=== PATIENT | male | born 1965 | race Caucasian/White ===

== ENCOUNTER 2018-10-16 20:38 | Inpatient (IN) | payer OTHER ==
--- NOTE | 2018-10-16 21:46 | ED ---
Chest Pain HPI - General Chief Complaint: Chest Pain Stated Complaint: Chest pain Source: patient Mode of arrival: wheelchair Limitations: no limitations - History of Present Illness Initial Comments: 's patient is a 53-year-old man who presents to be evaluated for left sided chest pain. He states that it began around 9 this morning, while he was watching television. He describes as somewhat dull, and states that it is a little bit intermittent. He has not noted worsening or relieving factors. He states it does not seem to be exertional, he was able to walk home from a grocery store this morning and it did not seem to make the pain worse. The patient states that it does seem to radiate towards his neck. He has not had any anginal symptoms associated. MD Complaint: chest pain Onset/Timin -: hour(s) Onset: during rest Pain Location: left chest Pain Radiation: neck Severity: moderate Quality: tightness, dull Consistency: intermittent Improves With: nothing Worsens With: nothing Treatments Prior to Arrival: none - Related Data Previous Rx's Medication Instructions Recorded Aspirin 325 mg PO DAILY #30 tab 10/22/18 Atorvastatin [Lipitor] 80 mg PO HS #30 tab 10/22/18 Clopidogrel [Plavix] 75 mg PO DAILY #30 tab 10/22/18 Famotidine [Pepcid] 20 mg PO HS PRN #30 tab 10/22/18 Lisinopril [Zestril] 2.5 mg PO DAILY #30 tab 10/22/18 Metoprolol Tartrate [Lopressor] 25 mg PO BID #60 tab 10/22/18 Nitroglycerin Sl Tabs [Nitrostat] 0.4 mg SUBLINGUAL Q5M PRN #30 tab 10/22/18 Allergies Allergy/AdvReac Type Severity Reaction Status Date / Time codeine AdvReac Nausea & Verified 10/16/18 21:16 Vomiting/ITCH Review of Systems ROS Statement: Those systems with pertinent positive or pertinent negative responses have been documented in the HPI. ROS Other: All systems not noted in ROS Statement are negative. Constitutional: Denies: fever, chills Respiratory: Denies: cough, dyspnea, hemoptysis Cardiovascular: Reports: chest pain. Denies: palpitations, dyspnea on exertion , orthopnea, syncope Gastrointestinal: Denies: abdominal pain, nausea, vomiting Genitourinary: Denies: dysuria Musculoskeletal: Denies: back pain Skin: Denies: rash Neurological: Denies: headache, weakness, numbness EKG Findings - EKG Results: EKG: interpreted by RONAL, sinus rhythm (Rate 72 bpm), normal axis, normal QRS - Blocks, [place], Hypertrophy, ST Abn: Repolarization changes or abnormalities: nonspecific abnormality, ST segment, and/or T wave Past Medical History Additional Past Medical History / Comment(s): right shoulder pain, back pain History of Any Multi-Drug Resistant Organisms: None Reported Past Surgical History: Orthopedic Surgery Additional Past Surgical History / Comment(s): left leg, left knee Past Psychological History: Depression Smoking Status: Current every day smoker Past Alcohol Use History: Occasional Past Drug Use History: Cocaine, Heroin - Past Family History Father Family Medical History: Coronary Artery Disease (CAD), Respiratory Disorder Additional Family Medical History / Comment(s): Father at the age of 75 yrs. Mother Family Medical History: No Reported History Additional Family Medical History / Comment(s): Mother is healthy General Exam Limitations: no limitations General appearance: alert, in no apparent distress Head exam: Present: atraumatic, normocephalic Eye exam: Present: normal appearance. Absent: scleral icterus, conjunctival injection ENT exam: Present: normal oropharynx Neck exam: Present: normal inspection, full ROM. Absent: tenderness, meningismus, lymphadenopathy, thyromegaly Respiratory exam: Present: normal lung sounds bilaterally. Absent: respiratory distress, wheezes, rales, rhonchi, stridor, chest wall tenderness, accessory muscle use, decreased breath sounds, prolonged expiratory Cardiovascular Exam: Present: regular rate, normal rhythm, normal heart sounds. Absent: systolic murmur, diastolic murmur, rubs, gallop GI/Abdominal exam: Present: soft. Absent: distended, tenderness, guarding, rebound, rigid, mass Extremities exam: Present: normal inspection, normal capillary refill. Absent: pedal edema, calf tenderness Back exam: Present: normal inspection. Absent: CVA tenderness (R), CVA tenderness (L) Neurological exam: Present: alert Skin exam: Present: warm, dry, intact, normal color. Absent: rash Course Vital Signs 10/16/18 10/16/18 10/16/18 20:42 21:07 22:00 Temperature 98.4 F Pulse Rate 64 76 71 Respiratory 18 20 18 Rate Blood Pressure 161/95 158/108 O2 Sat by Pulse 99 100 97 Oximetry 10/16/18 10/16/18 10/17/18 22:30 23:30 00:00 Temperature Pulse Rate 85 86 75 Respiratory 22 18 18 Rate Blood Pressure 176/119 163/110 172/119 O2 Sat by Pulse 95 96 97 Oximetry 10/17/18 10/17/18 10/17/18 00:30 01:00 01:30 Temperature Pulse Rate 59 L 68 80 Respiratory 20 18 30 H Rate Blood Pressure 169/117 166/121 172/124 O2 Sat by Pulse 98 96 96 Oximetry 10/17/18 10/17/18 10/17/18 02:00 02:40 02:45 Temperature Pulse Rate 79 45 L Respiratory 20 Rate Blood Pressure 153/116 163/117 O2 Sat by Pulse 100 Oximetry 10/17/18 10/17/18 10/17/18 03:13 04:00 04:18 Temperature 97.9 F 97.6 F Pulse Rate 56 L 68 59 L Respiratory 18 15 18 Rate Blood Pressure 140/94 143/95 122/72 O2 Sat by Pulse 100 98 98 Oximetry Chest Pain MDM - MDM Patient's 53-year-old man with left-sided chest pain, with acute coronary syndrome. His initial troponin 0.59. Patient given initially morphine, followed by Dilaudid, also aspirin, nitrates, heparin drip, then followed by nitro drip. Case discussed with cardiology on-call, and then following the patient's repeat troponin called and discussed again and they will take the patient for mason tender restoration labor. Critical Care Time Critical Care Time: Yes (35 minutes) Disposition Clinical Impression: Acute coronary syndrome Disposition: ADMITTED IP TO THIS HOSP Condition: Serious Is patient prescribed a controlled substance at d/c from ED?: No
--- NOTE | 2018-10-16 21:58 | XR ---
EXAMINATION TYPE: XR chest 2V DATE OF EXAM: 10/16/2018 COMPARISON: 07/25/2009 HISTORY: Chest pain TECHNIQUE: Frontal and lateral views of the chest are obtained. FINDINGS: Heart and mediastinum are normal. Lungs are clear. Diaphragm is normal. Bony thorax appear s normal. There are chest leads. IMPRESSION: Normal chest. No change.
[2018-10-16 22:15] LABS: Anisocytosis Slight; Basophils # (A) 0.1 k/uL (0-0.2); Basophils % (A) 1 %; Eosinophils # (A) 0.4 k/uL (0-0.7); Eosinophils % (A) 4 %; HGB 13.4 gm/dL (13.0-17.5); Lymphocytes # (A) 3.9 k/uL (1.0-4.8); Lymphocytes % (A) 38 %; MCH 26.5 pg (25.0-35.0); MCHC 30.5 g/dL (31.0-37.0); MCV 86.8 fL (80.0-100.0); Mean Platelet Volume 7.6; Monocytes # (A) 0.6 k/uL (0-1.0); Monocytes % (A) 6 %; Neutrophils % (A) 49 %; Platelet Count 309 k/uL (150-450); RBC 5.07 m/uL (4.30-5.90); RDW 16.7 % (11.5-15.5); WBC 10.1 k/uL (3.8-10.6)
[2018-10-16 22:20] LABS: ALT 243 U/L (21-72); AST 103 U/L (17-59); Albumin 4.6 g/dL (3.5-5.0); Alkaline Phosphatase 127 U/L (38-126); Anion Gap 12 mmol/L; Blood Urea Nitrogen 16 mg/dL (9-20); Calcium 9.5 mg/dL (8.4-10.2); Carbon Dioxide 28 mmol/L (22-30); Chloride 100 mmol/L (98-107); Glucose 115 mg/dL (74-99); Magnesium 1.6 mg/dL (1.6-2.3); Sodium 140 mmol/L (137-145); Total Bilirubin 0.7 mg/dL (0.2-1.3); Total Protein 9.3 g/dL (6.3-8.2)
[2018-10-16 22:39] LABS: Creatine Kinase MB 6.4 ng/mL (0.0-2.4)
[2018-10-16 22:51] LABS: INR 1.1 (<1.2); Partial Thromboplastin Time 26.7 sec (22.0-30.0); Prothrombin Time 11.6 sec (9.0-12.0)
[2018-10-16 22:54] LABS: Potassium 5.1 mmol/L (3.5-5.1); Troponin I 0.59 ng/mL (0.000-0.034)
[2018-10-16 22:55] LABS: D-Dimer <0.17 mg/L FEU (<0.60)
[2018-10-16] MEDS ORDERED: MORPHINE SULFATE 4 MG/ML SYRINGE IV STA (23:47)
[2018-10-16] MEDS ORDERED: NITROGLYCERIN OINT 1 INCH/GM PACKET TOPICAL STA (23:48)
[2018-10-16] MEDS ORDERED: HEPARIN SODIUM,PORCINE 5,000 UNIT/ML 1 ML VIAL IV ONE (23:48)
[2018-10-16] MEDS ORDERED: HEPARIN SODIUM,PORCINE 5,000 UNIT/ML 1 ML VIAL IV PRN (23:48)
[2018-10-17] MEDS ORDERED: ONDANSETRON 4 MG/2 ML VIAL IVP STA (00:40)
[2018-10-17] MEDS: HEPARIN SOD,PORK IN 0.45% NACL 25,000 UNIT in 0.45% NACL 1 250ML.BAG IV SCH (00:53)
[2018-10-17] MEDS: METOPROLOL TARTRATE 25 MG TAB PO STA ×2 (02:38→03:13)
[2018-10-17] MEDS ORDERED: HYDROmorphone 1 MG/ML 1 ML SYRINGE IVP STA (02:47)
[2018-10-17] MEDS ORDERED: NITROGLYCERIN-D5W PMX 50 MG in DEXTROSE/WATER 1 250ML.BAG IV ONE ×2 (02:48→05:43)
[2018-10-17] MEDS ORDERED: NITROGLYCERIN SL TABS 0.4 MG TAB SUBLINGUAL PRN ×2 (02:58→06:06)
--- NOTE | 2018-10-17 03:45 | CT ---
EXAM: CT Chest Without And With Intravenous Contrast CLINICAL HISTORY: Reason: Pain TECHNIQUE: Axial computed tomography images of the chest without and with intravenous contrast during the arterial phase of enhancement. CTDI is 95.9 mGy and DLP is 1654.3 mGy-cm. This CT exam was performed using one or more of the following dose reduction techniques: automated exposure control, adjustment of the mA and/or kV according to patient size, and/or use of iterative reconstruction technique. COMPARISON: None available FINDINGS: Pulmonary arteries: No evidence of acute pulmonary embolism. Aorta: No thoracic aortic aneurysm or evidence of dissection. Lungs: Mild bilateral dependent atelectasis. No evidence of acute pulmonary parenchymal disease or focal consolidation. Pleural space: No evidence of pleural effusion or pneumothorax. Heart: Heart size is within normal limits. Scattered coronary arterial calcifications. No significant pericardial effusion. Bones/joints: Moderate T12 vertebral compression fracture of indeterminate age-probably chronic. Lymph nodes: No evidence of lymphadenopathy. IMPRESSION: No evidence of acute pulmonary embolism. No thoracic aortic aneurysm or evidence of dissection. Moderate T12 vertebral compression fracture. EXAM: CT Abdomen and Pelvis Without Intravenous Contrast CLINICAL HISTORY: Reason: Pain TECHNIQUE: Axial computed tomography images of the abdomen and pelvis without intravenous contrast. CTDI is 95.9 mGy and DLP is 1654.3 mGy-cm. This CT exam was performed using one or more of the following dose reduction techniques: automated exposure control, adjustment of the mA and/or kV according to patient size, and/or use of iterative reconstruction technique. COMPARISON: None available FINDINGS: ABDOMEN: Liver: Liver is unremarkable. Gallbladder and bile ducts: Distended gallbladder. No radiopaque gallstones. No evidence of biliary dilatation. Pancreas: Pancreas is unremarkable. Spleen: Mild splenomegaly. Adrenals: No adrenal masses. Kidneys and ureters: Bilateral symmetric renal enhancement. No evidence of renal calculi or hydronephrosis. Stomach and bowel: No evidence of bowel obstruction or pneumoperitoneum. PELVIS: Appendix: No evidence of appendicitis. Bladder: Urinary bladder is unremarkable. No bladder calculi. Reproductive: Unremarkable as visualized. ABDOMEN and PELVIS: Intraperitoneal space: See above. Bones/joints: Minimal L1 vertebral compression fracture of indeterminate age-probably chronic. Multiple small nodular sclerotic foci involving bony pelvis and proximal right femur which are nonspecific and may reflect on islands. Soft tissues: Small bilateral fat-containing inguinal hernias. Small fat-containing umbilical hernia. Vasculature: Mild calcific atherosclerotic disease. No evidence of abdominal aortic aneurysm or dissection. Lymph nodes: No evidence of lymphadenopathy. IMPRESSION: No evidence of abdominal aortic aneurysm or dissection. Distended gallbladder. No opaque gallstones. Mild splenomegaly. Minimal L1 vertebral compression fracture.
[2018-10-17] MEDS: MORPHINE SULFATE 4 MG/ML SYRINGE IV PRN ×5 (04:36→20:14)
[2018-10-17 04:38] LABS: Glucose,Whole Blood 126 mg/dL (75-99)
[2018-10-17] MEDS ORDERED: VERAPAMIL 2.5 MG/ML 2 ML AMP ONE (04:57)
[2018-10-17] MEDS ORDERED: LIDOCAINE 1% INJ 10MG/ML (20 ML MDV) ONE (04:57)
[2018-10-17 05:07] LABS: Anisocytosis Slight; Basophils % (A) 0 %; Eosinophils # (A) 0.3 k/uL (0-0.7); Eosinophils % (A) 3 %; HCT 39.5 % (39.0-53.0); HGB 12.6 gm/dL (13.0-17.5); Lymphocytes # (A) 3.6 k/uL (1.0-4.8); Lymphocytes % (A) 31 %; MCH 27.1 pg (25.0-35.0); MCHC 31.9 g/dL (31.0-37.0); MCV 84.9 fL (80.0-100.0); Mean Platelet Volume 6.5; Monocytes # (A) 0.7 k/uL (0-1.0); Monocytes % (A) 6 %; Neutrophils # (A) 6.9 k/uL (1.3-7.7); Neutrophils % (A) 58 %; Platelet Count 331 k/uL (150-450); RBC 4.65 m/uL (4.30-5.90); RDW 16.5 % (11.5-15.5); WBC 11.9 k/uL (3.8-10.6)
[2018-10-17] MEDS ORDERED: IV FLUID CONTINUATION 250 ML IV ONE (05:13)
[2018-10-17] MEDS ORDERED: ASPIRIN 325 MG TAB ONE (05:14)
[2018-10-17] MEDS ORDERED: ASPIRIN 325 MG TAB PO ONE (05:15)
[2018-10-17] MEDS ORDERED: MIDAZOLAM 2 MG/2 ML VIAL IVP ONE (05:20)
[2018-10-17] MEDS ORDERED: fentaNYL (PF) 50 MCG/ML 2 ML AMP ONE (05:21)
[2018-10-17 05:22] LABS: Sodium 136 mmol/L (137-145)
[2018-10-17] MEDS ORDERED: LIDOCAINE 1% INJ 10MG/ML (20 ML MDV) SQ ONE (05:22)
[2018-10-17 05:24] LABS: Anion Gap 10 mmol/L; Blood Urea Nitrogen 14 mg/dL (9-20); Carbon Dioxide 24 mmol/L (22-30); Chloride 102 mmol/L (98-107); Glucose 149 mg/dL (74-99); Potassium 4.7 mmol/L (3.5-5.1)
[2018-10-17] MEDS ORDERED: CLOPIDOGREL 75 MG TAB ONE (05:31)
[2018-10-17] MEDS ORDERED: BIVALIRUDIN 250 MG in SODIUM CHLORIDE 0.9% 50 ML IV ONE (05:33)
[2018-10-17] MEDS ORDERED: BIVALIRUDIN BOLUS 250 MG/50 ML IV ONE (05:33)
[2018-10-17] MEDS ORDERED: CLOPIDOGREL 75 MG TAB PO ONE (05:35)
[2018-10-17] MEDS ORDERED: IOPAMIDOL-370 100ML BTL INJ ONE ×2 (05:41→06:00)
[2018-10-17] MEDS ORDERED: fentaNYL (PF) 50 MCG/ML 2 ML AMP IVP ONE (05:53)
[2018-10-17] MEDS ORDERED: MAG HYDROX/AL HYDROX/SIMETH 30 ML CUP PO PRN (06:06)
[2018-10-17] MEDS ORDERED: ATROPINE SULFATE 0.1 MG/ML 10ML SYRINGE IV PRN (06:06)
[2018-10-17] MEDS ORDERED: ZOLPIDEM 5 MG TAB PO PRN (06:06)
[2018-10-17] MEDS ORDERED: RX INFO: IV CONTRAST WAS GIVEN 1 EACH MISC MISCELLANE PRN (06:06)
[2018-10-17] MEDS ORDERED: SODIUM CHLORIDE 0.9% 1,000 ML IV SCH (06:15)
--- NOTE | 2018-10-17 06:27 | P.CRDCN ---
History of Present Illness Consult date: 10/17/18 Chief complaint: Chest pain History of present illness: This is a 53-year-old gentleman with a significant history of smoking and significant family history of coronary artery disease presented to the emergency room complaining of chest discomfort. He was in his usual state of health until early her today when he started experiencing chest discomfort, mainly over the left side of the chest, described as a sharp kind of discomfort, with some radiation to the neck as well as to the left arm. The chest discomfort was associated with shortness of breath. No sweating. No dizziness or lightheadedness. No syncope. The initial EKG subsequent EKG showed sinus rhythm with only nonspecific changes in the septal leads. No finding consistent with ST segment elevation. The initial troponin was below 1. The patient continues to have a chest discomfort and because of that he was admitted to the intensive. It and was started IV nitrate. He continues to have a chest discomfort in spite of increasing the dose of IV nitrate up to 40 mics. The second troponin came in to be above 1. The chest x-ray did not show any acute abnormalities. The patient underwent a computed tomography scan of the abdomen and pelvis which also did not show any evidence of aneurysm of the infrarenal aorta. Because of the continuous chest discomfort the patient was brought to the cardiac crime laboratory analyst. He underwent heart catheterization and that revealed acute total occlusion of the left circumflex in the distal portion. The patient underwent successful stenting of the left circumflex with a good angiographic results by the end. Beside that the patient was found to have intermediate to severe disease involving the mid RCA and severe disease involving the mid LAD as well as. The patient was chest pain-free by the end of the procedure. In terms of past medical history, the patient does not have any history of diabetes, hypertension, or dyslipidemia. He is a smoker of one pack per day. He does have very significant family history of coronary artery disease with his father. Past Medical History Additional Past Medical History / Comment(s): right shoulder pain, back pain History of Any Multi-Drug Resistant Organisms: None Reported Past Surgical History: Orthopedic Surgery Additional Past Surgical History / Comment(s): left leg, left knee Past Psychological History: Depression Smoking Status: Current every day smoker Past Alcohol Use History: Occasional Past Drug Use History: Cocaine, Heroin Medications and Allergies Home Medications Medication Instructions Recorded Confirmed Type No Known Home Medications 10/16/18 10/16/18 History Allergies Allergy/AdvReac Type Severity Reaction Status Date / Time codeine AdvReac Nausea & Verified 10/16/18 21:16 Vomiting/ITCH Physical Exam Vitals: Vital Signs Temp Pulse Resp BP Pulse Ox 10/17/18 04:30 100 10/17/18 04:18 59 L 18 122/72 98 10/17/18 04:00 97.6 F 68 15 143/95 98 10/17/18 03:13 97.9 F 56 L 18 140/94 100 10/17/18 02:45 45 L 10/17/18 02:40 79 20 163/117 100 10/17/18 02:00 153/116 10/17/18 01:30 80 30 H 172/124 96 10/17/18 01:00 68 18 166/121 96 10/17/18 00:30 59 L 20 169/117 98 10/17/18 00:00 75 18 172/119 97 10/16/18 23:30 86 18 163/110 96 10/16/18 22:30 85 22 176/119 95 10/16/18 22:00 71 18 158/108 97 10/16/18 21:07 76 20 100 10/16/18 20:42 98.4 F 64 18 161/95 99 Intake and Output 10/16/18 10/16/18 10/17/18 14:59 22:59 06:59 Intake Total 142.213 Balance 142.213 Intake: IV 100 Intake, IV Titration 42.213 Amount Heparin Sod,Pork in 0.45% 34.613 NaCl 25,000 unit In 0.45 % NaCl 1 250ml.bag @ 12 UNITS/KG/HR 8.8 mls/hr IV .Q24H [facility] Rx#:[id number] Nitroglycerin-D5w Pmx 50 7.6 mg In Dextrose/Water 1 250ml.bag @ 20 MCG/MIN 6 mls/hr IV .Q24H [facility] Rx#: [id number] Other: Weight 73.391 kg - Constitutional General appearance: no acute distress - Respiratory Respiratory: bilateral: CTA - Cardiovascular Rhythm: regular Heart sounds: normal: S1, S2 Abnormal Heart Sounds: systolic murmur Results 10/17/18 04:50 10/17/18 04:53 Cardiac Enzymes 10/16/18 10/16/18 10/17/18 Range/Units 21:45 21:45 03:17 AST 103 H (17-59) U/L CK-MB (CK-2) 6.4 H (0.0-2.4) ng/mL Troponin I 0.590 H* 1.310 H* (0.000-0.034) ng/mL Coagulation 10/16/18 Range/Units 21:45 PT 11.6 (9.0-12.0) sec APTT 26.7 (22.0-30.0) sec CBC 10/16/18 10/17/18 Range/Units 21:45 04:50 WBC 10.1 11.9 H (3.8-10.6) k/uL RBC 5.07 4.65 (4.30-5.90) m/uL Hgb 13.4 12.6 L (13.0-17.5) gm/dL Hct 44.0 39.5 (39.0-53.0) % Plt Count 309 331 (150-450) k/uL Comprehensive Metabolic Panel 10/16/18 10/17/18 Range/Units 21:45 04:53 Sodium 140 136 L (137-145) mmol/L Potassium 5.1 4.7 (3.5-5.1) mmol/L Chloride 100 102 (98-107) mmol/L Carbon Dioxide 28 24 (22-30) mmol/L BUN 16 14 (9-20) mg/dL Creatinine 0.86 0.67 (0.66-1.25) mg/dL Glucose 115 H 149 H (74-99) mg/dL Calcium 9.5 9.0 (8.4-10.2) mg/dL AST 103 H (17-59) U/L ALT 243 H (21-72) U/L Alkaline Phosphatase 127 H (38-126) U/L Total Protein 9.3 H (6.3-8.2) g/dL Albumin 4.6 (3.5-5.0) g/dL Current Medications Generic Name Dose Route Start Last Admin Trade Name Freq PRN Reason Stop Dose Admin Al Hydroxide/Mg Hydroxide 30 ml 10/17/18 06:06 Maalox PO Q4HR PRN Heartburn Aspirin 325 mg 10/18/18 09:00 Aspirin PO DAILY [facility] Aspirin 325 mg 10/17/18 09:00 Aspirin PO DAILY [facility] Atorvastatin Calcium 80 mg 10/17/18 21:00 Lipitor PO HS [facility] Atropine Sulfate 0.5 mg 10/17/18 06:06 Atropine IV ONCE PRN Symptomatic Bradycardia Clopidogrel Bisulfate 75 mg 10/18/18 06:06 Plavix PO DAILY [facility] Heparin Sodium (Porcine) 0 unit 10/16/18 23:48 Heparin IV PER PROTOCOL PRN Low PTT Protocol Heparin Sodium/Sodium Chloride 250 mls @ 8.8 mls/hr 10/16/18 23:45 10/17/18 04:49 25,000 unit/ Sodium Chloride IV 0 units/kg/hr .Q24H [facility] 0 mls/hr Titration Protocol 12 UNITS/KG/HR Nitroglycerin/Dextrose 50 mg/ 250 mls @ 6 mls/hr 10/17/18 02:48 10/17/18 04: 47 IV Solution IV 10/18/18 02:47 40 mcg/min .Q24H [facility] 12 mls/hr Titration Protocol 20 MCG/MIN Sodium Chloride 1,000 mls @ 100 mls/hr 10/17/18 06:15 Saline 0.9% IV 10/17/18 11:16 .Q10H [facility] Lisinopril 2.5 mg 10/17/18 09:00 Zestril PO DAILY [facility] Metoprolol Tartrate 25 mg 10/17/18 09:00 Lopressor PO BID [facility] Miscellaneous Information 1 each 10/17/18 06:06 Rx Info: Iv Contrast Was Given MISCELLANE 10/19/18 06:06 DAILY PRN Per Protocol Morphine Sulfate 4 mg 10/17/18 02:58 10/17/18 04:36 Morphine Sulfate (Inj) IV 4 mg Q5M PRN Administration Chest Pain Nitroglycerin 0.4 mg 10/17/18 02:58 Nitrostat SUBLINGUAL Q5M PRN Chest Pain Nitroglycerin 0.4 mg 10/17/18 06:06 Nitrostat SUBLINGUAL Q5M PRN Chest Pain Zolpidem Tartrate 5 mg 10/17/18 06:06 Ambien PO HS PRN Insomnia Intake and Output 10/16/18 10/16/18 10/17/18 14:59 22:59 06:59 Intake Total 142.213 Balance 142.213 Intake: IV 100 Intake, IV Titration 42.213 Amount Heparin Sod,Pork in 0.45% 34.613 NaCl 25,000 unit In 0.45 % NaCl 1 250ml.bag @ 12 UNITS/KG/HR 8.8 mls/hr IV .Q24H [facility] Rx#:[id number] Nitroglycerin-D5w Pmx 50 7.6 mg In Dextrose/Water 1 250ml.bag @ 20 MCG/MIN 6 mls/hr IV .Q24H [facility] Rx#: [id number] Other: Weight 73.391 kg Patient Weight 10/17/18 06:59 Weight 73.391 kg 10/17/18 04:50 10/17/18 04:53 Assessment and Plan Assessment: Assessment #1 acute non-ST deviation myocardial infarction #2 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 The patient was started on aspirin as well as clopidogrel #2 high intensity statin. The patient was started on Lipitor at 80 mg by mouth daily at bedtime #3 start the patient on metoprolol 25 mg by mouth twice a day and lisinopril 2.5 mg daily. Possible adjusting the dose depends on the blood pressure and heart rate #4 obtain an echocardiogram was Doppler to assess LV function #5 ICU admission #6 the right wean the patient from the nitroglycerin IV #7 the patient need to have a PCI of the LAD in the next 48-72 hours or as an outpatient #8 follow-up with the patient Thank you for allowing us participate in his care and we'll continue following up with him
[2018-10-17 07:04] LABS: Appearance,Urine Clear (Clear); Bilirubin,Urine Negative (Negative); Blood,Urine Negative (Negative); Color,Urine Yellow; Glucose,Urine (UA) Negative (Negative); Ketones,Urine Negative (Negative); Leukocyte Esterase,Urine Negative (Negative); Nitrite,Urine Negative (Negative); PH, Urine 7.5 (5.0-8.0); Protein,Urine Negative (Negative); Urobilinogen,Urine <2.0 mg/dL (<2.0)
[2018-10-17 07:09] LABS: Specific Gravity,Urine >1.050 (1.001-1.035)
[2018-10-17 07:45] VITALS: BMI 20.7
[2018-10-17] MEDS: ASPIRIN 325 MG TAB PO SCH ×2 (08:40→08:50)
[2018-10-17] MEDS: METOPROLOL TARTRATE 25 MG TAB PO SCH ×2 (08:50→20:14)
[2018-10-17] MEDS ORDERED: ATORVASTATIN 80 MG TAB PO SCH (09:00)
[2018-10-17] MEDS ORDERED: LISINOPRIL 10 MG TAB PO SCH (09:00)
[2018-10-17 10:27] LABS: Troponin I 10.8 ng/mL (0.000-0.034)
--- NOTE | 2018-10-17 11:02 | CC ---
CARDIAC CATHETERIZATION REPORT CARDIAC CATHETERIZATION AND PERCUTANEOUS CORONARY INTERVENTION DATE OF SERVICE: October 17, 2018 PERFORMING PHYSICIAN: Mike Langford MD, orthopaedic physician assistant. PROCEDURE PERFORMED: 1. Selective right and left coronary angiogram. 2. Left heart catheterization. 3. Successful stenting of the distal left circumflex using 2.5 x 28 mm Xience drug- eluting stent with reduction of stenosis from 100% to 0%. INDICATIONS: This is a pleasant 53-year-old gentleman with no significant past medical history of diabetes or hypertension or dyslipidemia, but significant history of smoking as well as significant family history of coronary artery disease who presented to the hospital complaining of chest discomfort and ruled in for acute [id number] myocardial infarction. The patient was started on nitro drip and was admitted to the intensive care unit. He continues to have ongoing chest discomfort around 8/10 in intensity in spite of 40 mcg of nitroglycerin IV. Because of that, a heart catheterization was advised. APPROACH: Right common femoral artery. COMPLICATION: None. LEVEL OF SEDATION: Moderate with sedation length of 39 minutes. PROCEDURE DESCRIPTION: After obtaining an informed consent, the patient was brought to the cardiac earth science laboratory technician. The right common femoral artery was cannulated using micropuncture technique, the micropuncture wire passed easily then I placed a 6-Khmer sheath in the right common femoral artery. At that point, I did selective right and left coronary angiogram using JR4 and JL4 catheters. After that I did intervene on the left circumflex, please see a separate paragraph for that. Then I did left heart catheterization using 6-Khmer pigtail catheter. The procedure was completed without any complication. SELECTIVE CORONARY ANGIOGRAM: 1. The right coronary artery is a large caliber vessel and it is a dominant vessel. The proximal right appeared to be angiographically normal. The mid right has intermediate to severe lesion, appeared to be in the range of 60% to 70%. The right distally has mild disease only and bifurcates into PDA and PLV branches. 2. The left main appeared to be angiographically normal. It bifurcates into left circumflex and left anterior descending artery. 3. The left circumflex is a large caliber vessel and it is a nondominant vessel. The proximal left circumflex appeared to be angiographically normal. The mid left circumflex appeared to be angiographically normal and gives rise into a large OM branch which appeared to be angiographically normal. The circumflex after that large OM branch is 100% occluded. 4. The LAD: The proximal LAD has mild plaque appeared to be in the range of 30%. The mid LAD has a lesion appeared to be in the range of 70% to 80%. This is just proximal to the bifurcation of a medium-sized diagonal branch. The LAD distally appeared to be angiographically normal. PCI OF THE LEFT CIRCUMFLEX: Anticoagulation was achieved using Angiomax with bolus and drip. Subsequently I did engage the left main using JL4 guide. I did cross the acute total occlusion in the left circumflex using 0.014 run-through wire. After that, I did balloon angioplasty using 2.0 x 15 mm balloon which was inflated 3 times in the distal left circumflex. After that and after giving the patient IC nitroglycerin to assess the exact diameter of the artery, I did deploy a 2.5 x 28 mm Xience drug-eluting stent. The stent was positioned under fluoroscopy guidance and it was deployed under 14 atmospheres for 20 seconds with the following angiogram showing good angiographic results and reduction of stenosis from 100% to 0%. The procedure at that point was completed. HEMODYNAMICS: The left ventricular end-diastolic pressure was 14 mmHg without any significant gradient across the aortic valve. CONCLUSION: 1. Acute total occlusion of the distal left circumflex which was opened and stented with good angiographic results and using 2.5 x 28 mm Xience drug-eluting stent and reduction of stenosis from 100% to 0%. 2. Intermediate to severe disease involving the mid right coronary artery. 3. Severe disease involving the mid LAD. POSTPROCEDURE MANAGEMENT: 1. Dual antiplatelet therapy. 2. Risk factors modifications. 3. An echocardiogram to assess the LV function. 4. Standard groin care and manual sheath removal. 5. PCI of the LAD to be done in 48 to 72 hours. MMODL / IJN: [id number] /
--- NOTE | 2018-10-17 11:33 | LTR ---
DATE OF SERVICE: 10/17/2018 RE: Murray Osmin Dear Dr. Pederson; Mr. Osmin Gao presented to the emergency room at [facility] with chest discomfort and ruled in for acute non ST elevation myocardial infarction. He underwent heart catheterization and was found to have a totally occluded left circumflex, which was opened and stented with good results by the end. Thank you for allowing us to participate in his care and please do not hesitate to call if you have any question or any concern. Sincerely, MD RISHABH Monsalve / ORLINN: [id number] /
--- NOTE | 2018-10-17 12:35 | ECHOF ---
Referral Reason:nstemi MEASUREMENTS -------- HEIGHT: 188.0 cm WEIGHT: 73.0 kg BP: 138/76 RVIDd: 2.8 cm (< 3.3) IVSd: 1.0 cm (0.6 - 1.1) LVIDd: 4.2 cm (3.9 - 5.3) LVPWd: 1.2 cm (0.6 - 1.1) IVSs: 1.5 cm LVIDs: 3.3 cm LVPWs: 1.6 cm LA Diam: 3.3 cm (2.7 - 3.8) LAESV Index (A-L): 20.13 ml/m Ao Diam: 2.9 cm (2.0 - 3.7) AV Cusp: 1.9 cm (1.5 - 2.6) MV EXCURSION: 21.150 mm (> 18.000) MV EF SLOPE: 107 mm/s (70 - 150) EPSS: 1.1 cm MV E All: 0.77 m/s MV DecT: 284 ms MV A All: 0.74 m/s MV E/A Ratio: 1.04 FINDINGS -------- Sinus rhythm. This was a technically good study. The left ventricular size is normal. Left ventricular wall thickness is normal. Overall left vent ricular systolic function is normal with, an EF between 55 - 60 %. The right ventricle is normal in size. Normal LA size by volume 22+/-6 ml/m2. The right atrium is normal in size. The aortic valve is trileaflet and appears structurally normal. Mild mitral regurgitation is present. The tricuspid valve appears structurally normal. The pulmonic valve was not well visualized. The aortic root size is normal. Normal inferior vena cava with normal inspiratory collapse consistent with estimated right atrial pre ssure of 5 mmHg. There is no pericardial effusion. CONCLUSIONS -------- 1. Sinus rhythm. 2. This was a technically good study. 3. The left ventricular size is normal. 4. Left ventricular wall thickness is normal. 5. Overall left ventricular systolic function is normal with, an EF between 55 - 60 %. 6. The right ventricle is normal in size. 7. Normal LA size by volume 22+/-6 ml/m2. 8. The right atrium is normal in size. 9. The aortic valve is trileaflet and appears structurally normal. 10. Mild mitral regurgitation is present. 11. The tricuspid valve appears structurally normal. 12. The pulmonic valve was not well visualized. 13. The aortic root size is normal. 14. Normal inferior vena cava with normal inspiratory collapse consistent with estimated right atrial pressure of 5 mmHg. 15. There is no pericardial effusion. [employer]MENT REPAIRER: Alivia Batista RDCS
[2018-10-17] MEDS: ATORVASTATIN 80 MG TAB PO SCH (20:14)
--- NOTE | 2018-10-17 22:36 | P.HPIM ---
History of Present Illness this is a pleasant 53 yo M with no significant pmh who present with left side severe chest pain found to have acute non ST elevation myocardial infaction , he underwent cardiac cath and found to have complete occlusion of the circumflex art , s/p stenting . today pt was in ICU , no chest pain or dyspnea and he looks calm and comfortable. with plan to have another possible stent of his LAD in 24-48 hour. Review of Systems CONSTITUTIONAL: No fever, no malaise, no fatigue. HEENT: No recent visual problems or hearing problems. Denied any sore throat. CARDIOVASCULAR: No orthopnea, PND, no palpitations, no syncope. PULMONARY: No shortness of breath, no cough, no hemoptysis. GASTROINTESTINAL: No diarrhea, no nausea, no vomiting, no abdominal pain. Normoactive bowel sounds. NEUROLOGICAL: No headaches, no weakness, no numbness. HEMATOLOGICAL: Denies any bleeding or petechiae. GENITOURINARY: Denies any burning micturition, frequency, or urgency. MUSCULOSKELETAL/RHEUMATOLOGICAL: Denies any joint pain, swelling, or any muscle pain. ENDOCRINE: Denies any polyuria or polydipsia. Past Medical History Additional Past Medical History / Comment(s): Chronic low back pain, bilateral shoulder pain/dislocations, past migraines but none since botox, bronchitis. History of Any Multi-Drug Resistant Organisms: None Reported Past Surgical History: Heart Catheterization With Stent, Orthopedic Surgery Additional Past Surgical History / Comment(s): 10/16/18 PCI/stent L cx, L leg fracture with surgery/hardware Past Anesthesia/Blood Transfusion Reactions: No Reported Reaction Date of Last Stent Placement:: 10/16/18 Smoking Status: Current every day smoker - Past Family History Father Family Medical History: Coronary Artery Disease (CAD), Respiratory Disorder Additional Family Medical History / Comment(s): Father at the age of 75 yrs. Mother Family Medical History: No Reported History Additional Family Medical History / Comment(s): Mother is healthy Medications and Allergies Home Medications Medication Instructions Recorded Confirmed Type No Known Home Medications 10/16/18 10/16/18 History Allergies Allergy/AdvReac Type Severity Reaction Status Date / Time codeine AdvReac Nausea & Verified 10/16/18 21:16 Vomiting/ITCH Physical Exam Vitals: Vital Signs Temp Pulse Pulse Resp BP BP Pulse Ox 10/17/18 20:20 14 10/17/18 20:00 97.9 F 87 14 113/67 96 10/17/18 19:00 82 10/17/18 18:00 65 10/17/18 17:00 71 10/17/18 16:00 98.0 F 75 29 H 117/86 98 10/17/18 15:00 67 12 117/83 10/17/18 14:00 66 14 118/81 10/17/18 13:00 63 25 H 118/80 95 10/17/18 12:00 98.2 F 70 14 114/88 95 10/17/18 11:00 72 20 95 10/17/18 10:45 55 L 21 122/88 96 10/17/18 10:30 57 L 10 L 122/88 95 10/17/18 10:15 59 L 3 L 122/88 96 10/17/18 10:00 62 14 142/99 97 10/17/18 09:45 78 11 L 97 10/17/18 09:30 66 12 98 10/17/18 09:15 82 12 142/99 98 10/17/18 09:00 75 12 130/86 99 10/17/18 08:45 64 14 130/86 96 10/17/18 08:30 82 17 130/86 98 10/17/18 08:15 65 21 98 10/17/18 08:00 98.1 F 65 15 130/86 97 10/17/18 07:45 75 13 126/89 97 10/17/18 07:30 84 9 L 126/89 96 10/17/18 07:15 86 4 L 126/89 96 10/17/18 07:00 66 16 126/89 96 10/17/18 06:51 82 16 144/78 10/17/18 06:45 84 28 H 137/99 97 10/17/18 06:30 59 L 16 10/17/18 05:30 112/76 10/17/18 05:15 112/76 10/17/18 05:00 112/76 10/17/18 04:45 60 9 L 127/83 96 10/17/18 04:30 53 L 20 100 10/17/18 04:18 59 L 18 122/72 98 10/17/18 04:00 97.6 F 68 15 143/95 98 10/17/18 03:13 97.9 F 56 L 18 140/94 100 10/17/18 02:45 45 L 10/17/18 02:40 79 20 163/117 100 10/17/18 02:00 153/116 10/17/18 01:30 80 30 H 172/124 96 10/17/18 01:00 68 18 166/121 96 10/17/18 00:30 59 L 20 169/117 98 10/17/18 00:00 75 18 172/119 97 10/16/18 23:30 86 18 163/110 96 10/16/18 22:30 85 22 176/119 95 Intake and Output 10/17/18 10/17/18 10/17/18 06:59 14:59 22:59 Intake Total 277.213 800 280 Output Total 500 1170 420 Balance -222.787 -370 -140 Intake: IV 235 800 280 0.9 NACL 100 800 280 Intake, IV Titration 42.213 Amount Heparin Sod,Pork in 0.45% 34.613 NaCl 25,000 unit In 0.45 % NaCl 1 250ml.bag @ 12 UNITS/KG/HR 8.8 mls/hr IV .Q24H ANN Rx#:[id number] Nitroglycerin-D5w Pmx 50 7.6 mg In Dextrose/Water 1 250ml.bag @ 20 MCG/MIN 6 mls/hr IV .Q24H ONE Rx#: [id number] Output: Urine 500 1170 420 Other: Voiding Method Indwelling Catheter Indwelling Catheter # Voids 0 Weight 73.391 kg GENERAL: The patient is alert and oriented x3, not in any acute distress. Well developed, well nourished. HEENT: Pupils are round and equally reacting to light. EOMI. No scleral icterus. No conjunctival pallor. Normocephalic, atraumatic. No pharyngeal erythema. No thyromegaly. CARDIOVASCULAR: S1 and S2 present. No murmurs, rubs, or gallops. PULMONARY: Chest is clear to auscultation, no wheezing or crackles. -ABDOMEN: Soft, nontender, nondistended, normoactive bowel sounds. No palpable organomegaly. puncture wound at the right inguinal area is healing , no signifcant swelling and dressing is in place MUSCULOSKELETAL: No joint swelling or deformity. EXTREMITIES: No cyanosis, clubbing, or pedal edema. NEUROLOGICAL: Gross neurological examination did not reveal any focal deficits. SKIN: No rashes. Results CBC & Chem 7: 10/17/18 04:50 10/17/18 04:53 Labs: Abnormal Lab Results - Last 24 Hours (Table) 10/16/18 10/16/18 10/17/18 Range/Units 21:45 21:45 03:17 WBC (3.8-10.6) k/uL Hgb (13.0-17.5) gm/dL RDW (11.5-15.5) % Sodium (137-145) mmol/L Glucose 115 H (74-99) mg/dL POC Glucose (mg/dL) (75-99) mg/dL AST 103 H (17-59) U/L ALT 243 H (21-72) U/L Alkaline Phosphatase 127 H (38-126) U/L Total Creatine Kinase (55-170) U/L CK-MB (CK-2) 6.4 H (0.0-2.4) ng/mL Troponin I 0.590 H* 1.310 H* (0.000-0.034) ng/mL Total Protein 9.3 H (6.3-8.2) g/dL Ur Specific [place] (1.001-1.035) 10/17/18 10/17/18 10/17/18 Range/Units 04:27 04:50 04:53 WBC 11.9 H (3.8-10.6) k/uL Hgb 12.6 L (13.0-17.5) gm/dL RDW 16.5 H (11.5-15.5) % Sodium 136 L (137-145) mmol/L Glucose 149 H (74-99) mg/dL POC Glucose (mg/dL) 126 H (75-99) mg/dL AST (17-59) U/L ALT (21-72) U/L Alkaline Phosphatase (38-126) U/L Total Creatine Kinase (55-170) U/L CK-MB (CK-2) (0.0-2.4) ng/mL Troponin I (0.000-0.034) ng/mL Total Protein (6.3-8.2) g/dL Ur Specific [place] (1.001-1.035) 10/17/18 10/17/18 Range/Units 06:30 09:22 WBC (3.8-10.6) k/uL Hgb (13.0-17.5) gm/dL RDW (11.5-15.5) % Sodium (137-145) mmol/L Glucose (74-99) mg/dL POC Glucose (mg/dL) (75-99) mg/dL AST (17-59) U/L ALT (21-72) U/L Alkaline Phosphatase (38-126) U/L Total Creatine Kinase 816 H (55-170) U/L CK-MB (CK-2) 101.0 H (0.0-2.4) ng/mL Troponin I 10.800 H* (0.000-0.034) ng/mL Total Protein (6.3-8.2) g/dL Ur Specific [place] >1.050 H (1.001-1.035) Microbiology - Last 24 Hours (Table) 10/17/18 06:30 Urine Culture - Preliminary Urine,Catheterized Thrombosis Risk Factor Assmnt - Choose All That Apply Any of the Below Risk Factors Present?: Yes Each Factor Represents 1 point: Acute PA, Age 41-60 years Other Risk Factors: Yes Each Risk Factor Represents 2 Points: Patient confined to bed Other congenital or acquired thrombophilia - If yes, enter type in comment: No Thrombosis Risk Factor Assessment Total Risk Factor Score: 4 Thrombosis Risk Factor Assessment Level: Moderate Risk Assessment and Plan Assessment: NSTEMI , s/p cardiac cath with complete occlusion of circumflex and LAD disease mild leukocytosis, reactive preserved LV function with EF of 55-60% hypertension Plan: this is a pleasant 53 yo M who present with NSTEMI , found to have complete occlusion of circumflex art, s/p stenting and cardiology team are following the case for possible evaluation and stenting of LAD , continue with dual anti- platelet therapy and statin and other antihypertensive therapy. Labs and medication were reviewed.. Continue same treatment. Continue with symptomatic treatment. Resume home medication. Monitor lytes and vitals. DVT and GI prophylaxis. Further recommendations of the clinical course of the patient DVT prophylaxis: Subcutaneous heparin GI Prophylaxis: Pepcid PT/OT: Pending Prognosis is guarded
[2018-10-18] MEDS: MORPHINE SULFATE 4 MG/ML SYRINGE IV PRN ×5 (00:19→20:55)
[2018-10-18] MEDS: HEPARIN SOD,PORK IN 0.45% NACL 25,000 UNIT in 0.45% NACL 1 250ML.BAG IV SCH (04:18)
[2018-10-18 05:10] LABS: Anisocytosis Slight; Basophils % (A) 1 %; Eosinophils # (A) 0.2 k/uL (0-0.7); Eosinophils % (A) 3 %; HGB 11.8 gm/dL (13.0-17.5); Hypochromasia Slight; Lymphocytes # (A) 3.6 k/uL (1.0-4.8); Lymphocytes % (A) 48 %; MCH 26.8 pg (25.0-35.0); MCV 86.3 fL (80.0-100.0); Mean Platelet Volume 7.1; Monocytes # (A) 0.5 k/uL (0-1.0); Monocytes % (A) 7 %; Neutrophils # (A) 2.9 k/uL (1.3-7.7); Neutrophils % (A) 38 %; Platelet Count 238 k/uL (150-450); RBC 4.41 m/uL (4.30-5.90); RDW 16.5 % (11.5-15.5); WBC 7.5 k/uL (3.8-10.6)
[2018-10-18 05:21] LABS: Anion Gap 5 mmol/L; Blood Urea Nitrogen 18 mg/dL (9-20); Calcium 8.5 mg/dL (8.4-10.2); Carbon Dioxide 27 mmol/L (22-30); Chloride 106 mmol/L (98-107); Cholesterol 144 mg/dL (<200); Glucose 112 mg/dL (74-99); HDL Cholesterol 44 mg/dL (40-60); LDL Cholesterol,Calculated 84 mg/dL (0-99); Potassium 4.8 mmol/L (3.5-5.1); Sodium 138 mmol/L (137-145); Triglycerides 78 mg/dL (<150)
[2018-10-18] MEDS: CLOPIDOGREL 75 MG TAB PO SCH ×2 (06:17→11:21)
[2018-10-18] MEDS: ASPIRIN 325 MG TAB PO SCH ×2 (08:25→09:23)
[2018-10-18] MEDS: METOPROLOL TARTRATE 25 MG TAB PO SCH ×2 (09:25→20:48)
[2018-10-18] MEDS ORDERED: LISINOPRIL 2.5 MG TAB PO SCH (10:28)
[2018-10-18] MEDS: LISINOPRIL 2.5 MG TAB PO SCH (12:09)
--- NOTE | 2018-10-18 14:43 | P.PN ---
Subjective Progress Note Date: 10/18/18 this patient was admitted with a non-ST segment elevation myocardial infarction. His and is status post stent to the circumflex coronary artery Is feeling well. He is 1 blood culture is growing gram-positive cocci. howeverpatient is afebrileatient remains hemodynamically stable. He will be transferred to telemetry bed. Objective - Vital Signs Vital signs: Vital Signs Temp 97.9 F 10/18/18 12:00 Pulse 65 10/18/18 12:00 Resp 16 10/18/18 12:00 BP 95/65 10/18/18 12:00 Pulse Ox 94 L 10/18/18 12:00 Intake & Output 10/17/18 10/18/18 10/18/18 18:59 06:59 18:59 Intake Total 1060 220 580 Output Total 1590 150 550 Balance -530 70 30 Weight 73.391 kg 71.2 kg Intake: IV 1060 220 100 0.9 NACL 1060 220 100 Oral 240 Tube Feeding 240 Output: Urine 1590 150 550 Other: Voiding Method Indwelling Catheter Indwelling Catheter Urinal # Voids 0 1 ABP, PAP, CO, CI - Last Documented Arterial Blood Pressure 140/73 - Exam Patient's vital signs are reviewed. The patient is alert awake and in no acute distress. HEENT negative. Neck-supple no increase in JVP noted no carotid bruits noted. Chest-symmetrical. Heart-first and second heart sounds are normal. No S3 or S4 is noted. No significant murmurs are noted. Lungs bilateral good at entry is noted. No rales or rhonchi are noted Abdomen-soft. Liver and spleen are not enlarged. The bowel sounds are normal. No tenderness noted Extremities-peripheral pulses since are 2+. No significant leg edema noted. Neuro-no significant gross abnormality noted. - Labs CBC & Chem 7: 10/18/18 04:38 10/18/18 04:38 Labs: Abnormal Lab Results - Last 24 Hours (Table) 10/18/18 10/18/18 Range/Units 04:38 04:38 Hgb 11.8 L (13.0-17.5) gm/dL Hct 38.0 L (39.0-53.0) % RDW 16.5 H (11.5-15.5) % Glucose 112 H (74-99) mg/dL Microbiology - Last 24 Hours (Table) 10/17/18 06:30 Urine Culture - Final Urine,Catheterized 10/17/18 00:35 Blood Culture - Final Blood Assessment and Plan Assessment: johann is status post stent to the circumflex coronary artery. He is hemodynamically stable. Patient will be ambulated. Continue the current medications.
--- NOTE | 2018-10-18 18:32 | P.PN ---
Subjective this is a pleasant 53 yo M with no significant pmh who present with left side severe chest pain found to have acute non ST elevation myocardial infaction , he underwent cardiac cath and found to have complete occlusion of the circumflex art , s/p stenting . today pt was in ICU , no chest pain or dyspnea and he looks calm and comfortable. with plan to have another possible stent of his LAD in 24-48 hour. 10/18/2018 Patient's remains in the ICU today with no chest pain or dyspnea. Patient feels comfortable with vital stable. However on blood pressure on the low side but patient is asymptomatic. He is status post stent of the circumflex artery for his non-STEMI. However his blood culture growing staph with no leukocytosis or fever. Will call infectious disease consult. Patient is planned to have another calf and possible another stent in the coming 1 or 2 days. Objective - Vital Signs Vital signs: Vital Signs Temp 98.6 F 10/18/18 16:00 Pulse 58 L 10/18/18 16:00 Resp 16 10/18/18 16:00 BP 88/62 10/18/18 16:00 Pulse Ox 96 10/18/18 16:00 Intake & Output 10/17/18 10/18/18 10/18/18 18:59 06:59 18:59 Intake Total 1060 220 700 Output Total 1590 150 900 Balance -530 70 -200 Weight 73.391 kg 71.2 kg Intake: IV 1060 220 100 0.9 NACL 1060 220 100 Oral 360 Tube Feeding 240 Output: Urine 1590 150 900 Other: Voiding Method Indwelling Catheter Indwelling Catheter Urinal # Voids 0 1 # Bowel Movements 1 ABP, PAP, CO, CI - Last Documented Arterial Blood Pressure 140/73 - Exam GENERAL: The patient is alert and oriented x3, not in any acute distress. Well developed, well nourished. HEENT: Pupils are round and equally reacting to light. EOMI. No scleral icterus. No conjunctival pallor. Normocephalic, atraumatic. No pharyngeal erythema. No thyromegaly. CARDIOVASCULAR: S1 and S2 present. No murmurs, rubs, or gallops. PULMONARY: Chest is clear to auscultation, no wheezing or crackles. ABDOMEN: Soft, nontender, nondistended, normoactive bowel sounds. No palpable organomegaly. MUSCULOSKELETAL: No joint swelling or deformity. EXTREMITIES: No cyanosis, clubbing, or pedal edema. NEUROLOGICAL: Gross neurological examination did not reveal any focal deficits. SKIN: No rashes. - Labs CBC & Chem 7: 10/18/18 04:38 10/18/18 04:38 Labs: Abnormal Lab Results - Last 24 Hours (Table) 10/18/18 10/18/18 Range/Units 04:38 04:38 Hgb 11.8 L (13.0-17.5) gm/dL Hct 38.0 L (39.0-53.0) % RDW 16.5 H (11.5-15.5) % Glucose 112 H (74-99) mg/dL Microbiology - Last 24 Hours (Table) 10/17/18 00:35 Blood Culture Gram Stain - Preliminary Blood Blood Culture - Preliminary Coagulase Negative Staph 10/17/18 06:30 Urine Culture - Final Urine,Catheterized 10/17/18 00:35 Blood Culture - Final Blood Assessment and Plan Assessment: NSTEMI , s/p cardiac cath with complete occlusion of circumflex and LAD disease mild leukocytosis, resolved Positive blood culture with the staph species preserved LV function with EF of 55-60% hypertension Plan: this is a pleasant 53 yo M who present with NSTEMI , found to have complete occlusion of circumflex art, s/p stenting and cardiology team are following the case for possible evaluation and stenting of LAD , continue with dual anti- platelet therapy and statin and other antihypertensive therapy. Call infectious disease consult. Labs and medication were reviewed.. Continue same treatment. Continue with symptomatic treatment. Resume home medication. Monitor lytes and vitals. DVT and GI prophylaxis. Further recommendations of the clinical course of the patient DVT prophylaxis: Subcutaneous heparin GI Prophylaxis: Pepcid PT/OT: Pending Prognosis is guarded
[2018-10-18] MEDS: ATORVASTATIN 80 MG TAB PO SCH (20:48)
[2018-10-19] MEDS: MORPHINE SULFATE 4 MG/ML SYRINGE IV PRN ×4 (05:19→20:19)
[2018-10-19 05:38] LABS: Anion Gap 6 mmol/L; Blood Urea Nitrogen 20 mg/dL (9-20); Calcium 8.8 mg/dL (8.4-10.2); Carbon Dioxide 28 mmol/L (22-30); Chloride 105 mmol/L (98-107); Glucose 138 mg/dL (74-99); Magnesium 1.6 mg/dL (1.6-2.3); Phosphorus 3.6 mg/dL (2.5-4.5); Potassium 4.1 mmol/L (3.5-5.1); Sodium 139 mmol/L (137-145)
[2018-10-19] MEDS: ASPIRIN 325 MG TAB PO SCH ×2 (08:23→08:24)
[2018-10-19] MEDS: CLOPIDOGREL 75 MG TAB PO SCH (08:24)
[2018-10-19] MEDS: METOPROLOL TARTRATE 25 MG TAB PO SCH ×2 (08:24→20:19)
[2018-10-19] MEDS: LISINOPRIL 2.5 MG TAB PO SCH (10:09)
[2018-10-19] MEDS ORDERED: NITROGLYCERIN SL TABS 0.4 MG TAB SUBLINGUAL PRN (12:28)
[2018-10-19] MEDS ORDERED: ALPRAZolam 0.25 MG TAB PO PRN (12:28)
--- NOTE | 2018-10-19 13:06 | P.PN ---
Subjective this is a pleasant 53 yo M with no significant pmh who present with left side severe chest pain found to have acute non ST elevation myocardial infaction , he underwent cardiac cath and found to have complete occlusion of the circumflex art , s/p stenting . today pt was in ICU , no chest pain or dyspnea and he looks calm and comfortable. with plan to have another possible stent of his LAD in 24-48 hour. 10/18/2018 Patient's remains in the ICU today with no chest pain or dyspnea. Patient feels comfortable with vital stable. However on blood pressure on the low side but patient is asymptomatic. He is status post stent of the circumflex artery for his non-STEMI. However his blood culture growing staph with no leukocytosis or fever. Will call infectious disease consult. Patient is planned to have another calf and possible another stent in the coming 1 or 2 days. 10/19/2018 Patient remains in the ICU with no chest pain or dyspnea. Patient hemodynamically stable, labs were significant. Blood culture showing Colace negative for staph. Infectious disease been consulted. Cardiology team are following the case. Objective - Vital Signs Vital signs: Vital Signs Temp 98.0 F 10/19/18 12:00 Pulse 71 10/19/18 12:00 Resp 18 10/19/18 12:00 BP 107/64 10/19/18 12:00 Pulse Ox 97 10/19/18 12:00 Intake & Output 10/18/18 10/19/18 10/19/18 18:59 06:59 18:59 Intake Total 700 240 Output Total 900 650 425 Balance -200 -650 -185 Weight 72.1 kg Intake: IV 100 0.9 NACL 100 Oral 360 240 Tube Feeding 240 Output: Urine 900 650 425 Other: Voiding Method Urinal Urinal # Voids 1 # Bowel Movements 1 ABP, PAP, CO, CI - Last Documented Arterial Blood Pressure 140/73 - Exam GENERAL: The patient is alert and oriented x3, not in any acute distress. Well developed, well nourished. HEENT: Pupils are round and equally reacting to light. EOMI. No scleral icterus. No conjunctival pallor. Normocephalic, atraumatic. No pharyngeal erythema. No thyromegaly. CARDIOVASCULAR: S1 and S2 present. No murmurs, rubs, or gallops. PULMONARY: Chest is clear to auscultation, no wheezing or crackles. ABDOMEN: Soft, nontender, nondistended, normoactive bowel sounds. No palpable organomegaly. MUSCULOSKELETAL: No joint swelling or deformity. EXTREMITIES: No cyanosis, clubbing, or pedal edema. NEUROLOGICAL: Gross neurological examination did not reveal any focal deficits. SKIN: No rashes. - Labs CBC & Chem 7: 10/18/18 04:38 10/19/18 04:48 Labs: Abnormal Lab Results - Last 24 Hours (Table) 10/19/18 Range/Units 04:48 Glucose 138 H (74-99) mg/dL Microbiology - Last 24 Hours (Table) 10/17/18 00:35 Blood Culture Gram Stain - Preliminary Blood Blood Culture - Preliminary Coagulase Negative Staph 10/17/18 06:30 Urine Culture - Final Urine,Catheterized 10/17/18 00:35 Blood Culture - Final Blood Assessment and Plan Assessment: NSTEMI , s/p cardiac cath with complete occlusion of circumflex and LAD disease mild leukocytosis, resolved Positive blood culture with the staph species preserved LV function with EF of 55-60% hypertension Plan: this is a pleasant 53 yo M who present with NSTEMI , found to have complete occlusion of circumflex art, s/p stenting and cardiology team are following the case for possible evaluation and stenting of LAD , continue with dual anti- platelet therapy and statin and other antihypertensive therapy. Call infectious disease consult. Labs and medication were reviewed.. Continue same treatment. Continue with symptomatic treatment. Resume home medication. Monitor lytes and vitals. DVT and GI prophylaxis. Further recommendations of the clinical course of the patient DVT prophylaxis: Subcutaneous heparin GI Prophylaxis: Pepcid PT/OT: Pending Prognosis is guarded
--- NOTE | 2018-10-19 14:14 | P.CONS ---
History of Present Illness - Reason for Consult Consult date: 10/18/18 Bacteremia Requesting physician: Michel E Sheet - Chief Complaint Chest pain for 1 day - History of Present Illness Patient is a 53-year-old male presenting to the ER on 10/16/2018 which chief complaint of chest pain. Pain Has been most of the left side of the chest that started around 9 in the morning patient describes the pain to be more of a sharp at times pressure with intensity of 8 out of 10 and no radiation and some associated shortness of breath, no cough or sputum production and no urinary symptoms no abdominal pain and no diarrhea, patient did have mildly elevated white count of 11,000 he did have elevated troponin of 10.8, patient is status post cardiac cath done by cardiology with successful stenting of the distal left circumflex, patient did have blood culture drawn in the ER was given a positive gram-positive cocci that probably this infection disease consultation patient is to be afebrile denies any future prior to coming to the hospital currently with no open sores or any joint swelling, patient will give a history of chronic hepatitis C and did have a history of IV drug use but no sharing of the needle Review of Systems Review of system Constitutional: The patient denies any fever or rigors or chills, the patient does complain of weakness. Eyes: No complaint ENT: No complaint Respiratory: No complaint Cardiovascular: As per history of present illness Gastrointestinal: No complaint Genitourinary: No complaint Musculoskeletal: No complaint Integumentary: No complaint Endocrine : No complaint Psycologial : No complaint Neurological: No complaint. Past Medical History Additional Past Medical History / Comment(s): Chronic low back pain, bilateral shoulder pain/dislocations, past migraines but none since botox, bronchitis. History of Any Multi-Drug Resistant Organisms: None Reported Past Surgical History: Heart Catheterization With Stent, Orthopedic Surgery Additional Past Surgical History / Comment(s): 10/16/18 PCI/stent L cx, L leg fracture with surgery/hardware Past Anesthesia/Blood Transfusion Reactions: No Reported Reaction Date of Last Stent Placement:: 10/16/18 Smoking Status: Current every day smoker - Past Family History Father Family Medical History: Coronary Artery Disease (CAD), Respiratory Disorder Additional Family Medical History / Comment(s): Father at the age of 75 yrs. Mother Family Medical History: No Reported History Additional Family Medical History / Comment(s): Mother is healthy Medications and Allergies Home Medications Medication Instructions Recorded Confirmed Type No Known Home Medications 10/16/18 10/16/18 History Allergies Allergy/AdvReac Type Severity Reaction Status Date / Time codeine AdvReac Nausea & Verified 10/16/18 21:16 Vomiting/ITCH Physical Exam Vitals: Vital Signs Temp Pulse Resp BP Pulse Ox 10/18/18 20:30 98.0 F 72 13 100/70 95 10/18/18 18:30 69 13 94/66 10/18/18 18:00 69 7 L 94/66 10/18/18 17:30 64 16 94/66 10/18/18 17:00 71 8 L 94/66 10/18/18 16:30 67 17 94/66 10/18/18 16:00 98.6 F 58 L 16 88/62 96 10/18/18 14:00 64 19 113/86 92 L 10/18/18 12:00 97.9 F 65 16 95/65 94 L 10/18/18 11:00 61 17 105/56 95 10/18/18 10:00 66 16 113/74 95 10/18/18 09:00 73 22 88/61 96 10/18/18 08:00 97.8 F 18 99/63 96 10/18/18 07:00 56 L 13 99/63 92 L 10/18/18 06:00 58 L 15 82/68 96 10/18/18 05:00 61 12 84/57 98 10/18/18 04:00 97.9 F 57 L 19 102/59 98 10/18/18 03:56 18 10/18/18 03:00 62 18 99/58 94 L 10/18/18 02:00 71 16 93/59 92 L 10/18/18 01:00 63 19 93/59 98 10/18/18 00:20 19 10/18/18 00:00 65 16 99/58 95 10/17/18 23:00 72 17 96/61 96 Intake and Output 10/18/18 10/18/18 10/18/18 06:59 14:59 22:59 Intake Total 160 580 120 Output Total 0 550 1000 Balance 160 30 -880 Intake: IV 160 100 0.9 NACL 160 100 Oral 240 120 Tube Feeding 240 Output: Urine 0 550 1000 Other: Voiding Method Indwelling Catheter Urinal Urinal # Voids 0 1 # Bowel Movements 1 1 Weight 71.2 kg General: The patient is awake and alert, in no distress. Skin: no rashes and no masses palpable. Eye: Pupils are equal, round, there is normal conjunctiva bilaterally. Ears, nose, mouth and throat: There are moist mucous membranes and no oral lesions. Neck: The neck is supple, there is no thyromegaly. Cardiovascular: S1-S2 regular rate and rhythm. No murmur. Respiratory: Unlabored breathing clear to auscultation bilaterally Gastrointestinal: Soft, non-distended, non-tender abdomen without masses or organomegaly noted. Neurological: There are no obvious motor or sensory deficits. Coordination appears grossly intact. Speech is normal. Psychiatric: Patient is awake and alert and oriented 3, appropriate mood & affect, normal judgment. Results CBC & Chem 7: 10/18/18 04:38 10/19/18 04:48 Labs: Abnormal Lab Results - Last 24 Hours (Table) 10/18/18 10/18/18 Range/Units 04:38 04:38 Hgb 11.8 L (13.0-17.5) gm/dL Hct 38.0 L (39.0-53.0) % RDW 16.5 H (11.5-15.5) % Glucose 112 H (74-99) mg/dL Microbiology - Last 24 Hours (Table) 10/17/18 00:35 Blood Culture Gram Stain - Preliminary Blood Blood Culture - Preliminary Coagulase Negative Staph 10/17/18 06:30 Urine Culture - Final Urine,Catheterized 10/17/18 00:35 Blood Culture - Final Blood Assessment and Plan (1) Bacteremia Current Visit: Yes Status: Acute Code(s): R78.81 - BACTEREMIA SNOMED Code( s): 0973241 (2) Chronic hepatitis Current Visit: Yes Status: Acute Code(s): K73.9 - CHRONIC HEPATITIS, UNSPECIFIED SNOMED Code(s): 91603486 Plan: 1- patient with a positive blood culture with gram-positive cocci in this patient currently with no fever mildly elevated white count on admission more likely pointing towards a skin contamination as the patient has no clinical diseases to go along with it, plan will be for repeating blood cultures to make sure no evidence of any persistent or true bacteremia and hold on adding any vancomycin as the clinical suspicious remains to below for a true infection, 2- patient with chronic hepatitis C-- workup in the outpatient setting we will follow-up on clinical condition to further adjust medication if needed , thank you for this consultation will follow this patient along with you Time with Patient: Greater than 30
[2018-10-19] MEDS: ALPRAZolam 0.5 MG TAB PO PRN (20:19)
[2018-10-19] MEDS: ATORVASTATIN 80 MG TAB PO SCH (20:19)
--- NOTE | 2018-10-19 22:22 | P.PN ---
Subjective Progress Note Date: 10/19/18 This patient is status post stent to the circumflex coronary artery. Us and remains stable. Denies any chest pain or shortness of breath no dysrhythmias are noted. Patient will undergo stent to the LAD tomorrow. Objective - Vital Signs Vital signs: Vital Signs Temp 97.8 F 10/19/18 20:00 Pulse 71 10/19/18 20:00 Resp 12 10/19/18 20:00 BP 129/80 10/19/18 20:00 Pulse Ox 97 10/19/18 20:00 Intake & Output 10/19/18 10/19/18 10/20/18 06:59 18:59 06:59 Intake Total 720 Output Total 650 725 Balance -650 -5 Weight 72.1 kg Intake: Oral 720 Output: Urine 650 725 Other: Voiding Method Urinal # Voids 1 ABP, PAP, CO, CI - Last Documented Arterial Blood Pressure 140/73 - Exam Patient's vital signs are reviewed. The patient is alert awake and in no acute distress. HEENT negative. Neck-supple no increase in JVP noted no carotid bruits noted. Chest-symmetrical. Heart-first and second heart sounds are normal. No S3 or S4 is noted. No significant murmurs are noted. Lungs bilateral good at entry is noted. No rales or rhonchi are noted Abdomen-soft. Liver and spleen are not enlarged. The bowel sounds are normal. No tenderness noted Extremities-peripheral pulses since are 2+. No significant leg edema noted. Neuro-no significant gross abnormality noted. - Labs CBC & Chem 7: 10/18/18 04:38 10/19/18 04:48 Labs: Abnormal Lab Results - Last 24 Hours (Table) 10/19/18 Range/Units 04:48 Glucose 138 H (74-99) mg/dL Microbiology - Last 24 Hours (Table) 10/18/18 16:30 Blood Culture - Preliminary Blood No Growth after 24 hours 10/18/18 14:51 Blood Culture - Preliminary Blood No Growth after 24 hours 10/17/18 00:35 Blood Culture Gram Stain - Preliminary Blood Blood Culture - Preliminary Coagulase Negative Staph Assessment and Plan Assessment: Patient remains a stable. Patient will undergo stent to the LAD tomorrow.
--- NOTE | 2018-10-19 22:35 | PN ---
PROGRESS NOTE DATE OF SERVICE: 10/19/2018. REASON FOR FOLLOWUP: Positive blood culture, chronic hepatitis C. INTERVAL HISTORY: The patient is afebrile, has been breathing comfortably. Denies having any chest pain or cough. No abdominal pain or any diarrhea. PHYSICAL EXAMINATION: Blood pressure 123/85 with a pulse of 57, temperature 97.9, he is 97% on room air. GENERAL DESCRIPTION: A middle-aged male lying in bed in no distress. RESPIRATORY SYSTEM: Unlabored breathing. Clear to auscultation anteriorly. HEART: S1, S2. Regular rate and rhythm. ABDOMEN: Soft, no tenderness. LABS: Hemoglobin 11.8 with a white count of 7.4, BUN of 20, creatinine 0.83. Blood culture with coagulase negative Staph. Blood culture repeat has been negative so far. DIAGNOSTIC IMPRESSION AND PLAN: 1. Patient with positive blood culture with E coli with coagulase negative Staph likely contaminate and not a true pathogen. If followup blood cultures negative no need for any vancomycin. 2. The patient with chronic hepatitis C, workup as an outpatient. All questions were answered. MMODL / IJN: [id number] /
[2018-10-20 05:05] LABS: Anisocytosis Slight; Basophils # (A) 0.1 k/uL (0-0.2); Basophils % (A) 1 %; Eosinophils # (A) 0.3 k/uL (0-0.7); Eosinophils % (A) 4 %; HGB 12.2 gm/dL (13.0-17.5); Hypochromasia Slight; Lymphocytes # (A) 3.1 k/uL (1.0-4.8); Lymphocytes % (A) 48 %; MCH 26.8 pg (25.0-35.0); MCHC 30.5 g/dL (31.0-37.0); MCV 87.8 fL (80.0-100.0); Mean Platelet Volume 6.6; Monocytes # (A) 0.6 k/uL (0-1.0); Monocytes % (A) 9 %; Neutrophils # (A) 2.3 k/uL (1.3-7.7); Neutrophils % (A) 35 %; Platelet Count 267 k/uL (150-450); RBC 4.56 m/uL (4.30-5.90); RDW 16.3 % (11.5-15.5); WBC 6.4 k/uL (3.8-10.6)
[2018-10-20 05:15] LABS: Anion Gap 7 mmol/L; Blood Urea Nitrogen 19 mg/dL (9-20); Calcium 9.1 mg/dL (8.4-10.2); Carbon Dioxide 24 mmol/L (22-30); Chloride 107 mmol/L (98-107); Glucose 139 mg/dL (74-99); Magnesium 1.6 mg/dL (1.6-2.3); Phosphorus 4.3 mg/dL (2.5-4.5); Potassium 4.5 mmol/L (3.5-5.1); Sodium 138 mmol/L (137-145)
[2018-10-20] MEDS ORDERED: ASPIRIN 325 MG TAB PO ONE (06:00)
[2018-10-20] MEDS ORDERED: SODIUM CHLORIDE 0.9% 1,000 ML in EMPTY BAG 1 BAG IV ONE (06:00)
[2018-10-20] MEDS ORDERED: ATORVASTATIN 80 MG TAB PO ONE (06:00)
[2018-10-20] MEDS: MAGNESIUM SULFATE-D5W PMX 1 GM in DEXTROSE/WATER 1 100ML.BAG IVPB SCH ×2 (06:07→07:17)
[2018-10-20] MEDS: MORPHINE SULFATE 4 MG/ML SYRINGE IV PRN ×3 (07:30→22:05)
[2018-10-20] MEDS: ASPIRIN 325 MG TAB PO SCH (07:59)
[2018-10-20] MEDS: CLOPIDOGREL 75 MG TAB PO SCH (08:05)
[2018-10-20] MEDS: METOPROLOL TARTRATE 25 MG TAB PO SCH ×2 (08:05→22:05)
[2018-10-20] MEDS: LISINOPRIL 2.5 MG TAB PO SCH (08:06)
--- NOTE | 2018-10-20 20:23 | PN ---
PROGRESS NOTE REASON FOR FOLLOWUP: 1. Positive blood culture. 2. Chronic hepatitis C. INTERVAL HISTORY: The patient is currently afebrile, has been breathing comfortably. The patient did have occasional cough. No nausea, vomiting or any diarrhea. PHYSICAL EXAMINATION: Blood pressure is 99/58 with a pulse of 72, temperature 97.9. He is 97% on room air. General description is a middle-aged male lying in bed in no distress. RESPIRATORY SYSTEM: Unlabored breathing. Clear to auscultation anteriorly. HEART: S1, S2. Regular rate and rhythm. ABDOMEN: Soft. No tenderness. EXTREMITIES: No edema of the feet. LABS: Hemoglobin is 12.2, white count 6.4, BUN of 19, creatinine 0.71. Blood culture repeat has been negative. DIAGNOSTIC IMPRESSION AND PLAN: 1. Patient with positive blood culture with Staphylococcus epidermidis, likely skin contamination in a patient with no clinical disease to go along with it, and repeat blood culture has been negative. Currently off antibiotic therapy. 2. Patient with chronic hepatitis C. Further workup as an outpatient. ID will sign off. Please call with any questions regarding his infectious disease care. MMODL / IJN: [id number] /
[2018-10-20] MEDS: ATORVASTATIN 80 MG TAB PO SCH (22:05)
[2018-10-20] MEDS: ALPRAZolam 0.5 MG TAB PO PRN (22:05)
--- NOTE | 2018-10-20 22:54 | CONS ---
CONSULTATION This patient is status post acute myocardial infarction and stent to the circumflex coronary artery. Patient remains stable. He denies any angina or shortness of breath. The patient's medical records and vital signs and as well as medications are reviewed. First and second heart sounds are normal. Blood pressure is 108/66 mmHg. Lungs are clear to auscultation and percussion. The patient will undergo a stent to the LAD tomorrow. MMODL / IJN: [id number] /
--- NOTE | 2018-10-21 00:32 | P.PN ---
Subjective this is a pleasant 53 yo M with no significant pmh who present with left side severe chest pain found to have acute non ST elevation myocardial infaction , he underwent cardiac cath and found to have complete occlusion of the circumflex art , s/p stenting . today pt was in ICU , no chest pain or dyspnea and he looks calm and comfortable. with plan to have another possible stent of his LAD in 24-48 hour. 10/18/2018 Patient's remains in the ICU today with no chest pain or dyspnea. Patient feels comfortable with vital stable. However on blood pressure on the low side but patient is asymptomatic. He is status post stent of the circumflex artery for his non-STEMI. However his blood culture growing staph with no leukocytosis or fever. Will call infectious disease consult. Patient is planned to have another calf and possible another stent in the coming 1 or 2 days. 10/19/2018 Patient remains in the ICU with no chest pain or dyspnea. Patient hemodynamically stable, labs were significant. Blood culture showing Colace negative for staph. Infectious disease been consulted. Cardiology team are following the case. 10/20/2018 pt is in ICU, no chest pain or dyspnea. Patient hemodynamically stable, plan for caridac cath in am , with possible stenting of LAD. infecious disease consult is appreciated . positive blood culture is contamination ,f/u repeat blood culture Objective - Vital Signs Vital signs: Vital Signs Temp 97.9 F 10/20/18 16:00 Pulse 72 10/20/18 16:00 Resp 18 10/20/18 16:00 BP 99/58 10/20/18 16:00 Pulse Ox 97 10/20/18 16:00 Intake & Output 10/20/18 10/20/18 10/21/18 06:59 18:59 06:59 Intake Total 1065 Output Total 300 Balance 765 Weight 71.7 kg Intake: Intake, IV Titration 525 Amount Sodium Chloride 0.9% 1, 0 000 ml @ 75 mls/hr IV . [id number] [facility] Rx#:[id number] Sodium Chloride 0.9% 1, 525 000 ml In Empty Bag 1 bag @ 1 ML/KG/HR 72.1 mls/hr IV .[id number] [facility] Rx#: [id number] Oral 540 Output: Urine 300 Other: Voiding Method Urinal # Voids 1 1 # Bowel Movements 1 ABP, PAP, CO, CI - Last Documented Arterial Blood Pressure 140/73 - Exam GENERAL: The patient is alert and oriented x3, not in any acute distress. Well developed, well nourished. HEENT: Pupils are round and equally reacting to light. EOMI. No scleral icterus. No conjunctival pallor. Normocephalic, atraumatic. No pharyngeal erythema. No thyromegaly. CARDIOVASCULAR: S1 and S2 present. No murmurs, rubs, or gallops. PULMONARY: Chest is clear to auscultation, no wheezing or crackles. ABDOMEN: Soft, nontender, nondistended, normoactive bowel sounds. No palpable organomegaly. MUSCULOSKELETAL: No joint swelling or deformity. EXTREMITIES: No cyanosis, clubbing, or pedal edema. NEUROLOGICAL: Gross neurological examination did not reveal any focal deficits. SKIN: No rashes. - Labs CBC & Chem 7: 10/20/18 04:30 10/20/18 04:30 Labs: Abnormal Lab Results - Last 24 Hours (Table) 10/20/18 10/20/18 Range/Units 04:30 04:30 Hgb 12.2 L (13.0-17.5) gm/dL MCHC 30.5 L (31.0-37.0) g/dL RDW 16.3 H (11.5-15.5) % Glucose 139 H (74-99) mg/dL Microbiology - Last 24 Hours (Table) 10/18/18 16:30 Blood Culture - Preliminary Blood No Growth after 48 hours 10/18/18 14:51 Blood Culture - Preliminary Blood No Growth after 48 hours 10/17/18 00:35 Blood Culture Gram Stain - Final Blood Blood Culture - Preliminary Staphylococcus epidermidis Assessment and Plan Assessment: NSTEMI , s/p cardiac cath with complete occlusion of circumflex and LAD disease mild leukocytosis, resolved Positive blood culture with the staph species preserved LV function with EF of 55-60% hypertension Plan: this is a pleasant 53 yo M who present with NSTEMI , found to have complete occlusion of circumflex art, s/p stenting and cardiology team are following the case for possible evaluation and stenting of LAD , continue with dual anti- platelet therapy and statin and other antihypertensive therapy. Call infectious disease consult. Labs and medication were reviewed.. Continue same treatment. Continue with symptomatic treatment. Resume home medication. Monitor lytes and vitals. DVT and GI prophylaxis. Further recommendations of the clinical course of the patient DVT prophylaxis: Subcutaneous heparin GI Prophylaxis: Pepcid PT/OT: Pending Prognosis is guarded
[2018-10-21 04:58] LABS: Anisocytosis Slight; Basophils # (A) 0.1 k/uL (0-0.2); Basophils % (A) 1 %; Eosinophils # (A) 0.3 k/uL (0-0.7); Eosinophils % (A) 4 %; HCT 38.2 % (39.0-53.0); HGB 11.8 gm/dL (13.0-17.5); Hypochromasia Slight; Lymphocytes # (A) 2.9 k/uL (1.0-4.8); Lymphocytes % (A) 45 %; MCH 27.1 pg (25.0-35.0); MCHC 30.9 g/dL (31.0-37.0); MCV 87.8 fL (80.0-100.0); Mean Platelet Volume 6.6; Monocytes # (A) 0.6 k/uL (0-1.0); Monocytes % (A) 9 %; Neutrophils # (A) 2.5 k/uL (1.3-7.7); Neutrophils % (A) 39 %; Platelet Count 249 k/uL (150-450); RBC 4.34 m/uL (4.30-5.90); RDW 16.2 % (11.5-15.5); WBC 6.4 k/uL (3.8-10.6)
[2018-10-21 05:16] LABS: Anion Gap 7 mmol/L; Blood Urea Nitrogen 17 mg/dL (9-20); Calcium 8.9 mg/dL (8.4-10.2); Carbon Dioxide 26 mmol/L (22-30); Chloride 106 mmol/L (98-107); Glucose 101 mg/dL (74-99); Magnesium 1.7 mg/dL (1.6-2.3); Phosphorus 4.1 mg/dL (2.5-4.5); Potassium 4.3 mmol/L (3.5-5.1); Sodium 139 mmol/L (137-145)
[2018-10-21] MEDS: SODIUM CHLORIDE 0.9% 1,000 ML IV SCH ×2 (06:10→19:32)
[2018-10-21] MEDS: MORPHINE SULFATE 4 MG/ML SYRINGE IV PRN ×5 (06:35→22:55)
[2018-10-21] MEDS: MAGNESIUM SULFATE-D5W PMX 1 GM in DEXTROSE/WATER 1 100ML.BAG IVPB SCH ×2 (06:37→07:52)
[2018-10-21] MEDS: ASPIRIN 325 MG TAB PO SCH ×2 (07:59→08:01)
[2018-10-21] MEDS: CLOPIDOGREL 75 MG TAB PO SCH (07:59)
[2018-10-21] MEDS: LISINOPRIL 2.5 MG TAB PO SCH (08:02)
[2018-10-21] MEDS ORDERED: LIDOCAINE 1% INJ 10MG/ML (20 ML MDV) ONE (08:02)
[2018-10-21] MEDS: METOPROLOL TARTRATE 25 MG TAB PO SCH ×3 (08:02→20:32)
[2018-10-21] MEDS ORDERED: VERAPAMIL 2.5 MG/ML 2 ML AMP ONE (08:14)
[2018-10-21] MEDS ORDERED: SODIUM CHLORIDE 0.9% 1,000 ML IV ONE (08:29)
[2018-10-21] MEDS ORDERED: SODIUM CHLORIDE 0.9% 500 ML 500 ML IV ONE (08:33)
[2018-10-21] MEDS: MIDAZOLAM 2 MG/2 ML VIAL IVP ONE ×2 (08:45→08:51)
[2018-10-21] MEDS ORDERED: LIDOCAINE 2% INJ 20 MG/ML SQ ONE (08:49)
[2018-10-21] MEDS ORDERED: BIVALIRUDIN BOLUS 250 MG/50 ML IV ONE (08:52)
[2018-10-21] MEDS ORDERED: VERAPAMIL SYRINGE (5 MG/10 ML) INTRAARTER ONE (08:52)
[2018-10-21] MEDS ORDERED: BIVALIRUDIN 250 MG in SODIUM CHLORIDE 0.9% 50 ML IV ONE (08:54)
[2018-10-21] MEDS ORDERED: fentaNYL (PF) 50 MCG/ML 2 ML AMP ONE (08:56)
[2018-10-21] MEDS ORDERED: fentaNYL (PF) 50 MCG/ML 2 ML AMP IVP ONE (08:59)
[2018-10-21] MEDS: NITROGLYCERIN 1000MCG/10ML SYRINGE INTRACORON ONE ×2 (09:03→09:09)
[2018-10-21] MEDS ORDERED: MIDAZOLAM 2 MG/2 ML VIAL IV ONE (09:14)
[2018-10-21] MEDS ORDERED: ADENOSINE 90 MG in SODIUM CHLORIDE 0.9% 60 ML IVP ONE (09:27)
[2018-10-21] MEDS ORDERED: IOPAMIDOL-370 150ML BTL INJ ONE (09:28)
[2018-10-21] MEDS ORDERED: CLOPIDOGREL 75 MG TAB PO ONE (09:28)
[2018-10-21] MEDS ORDERED: CLOPIDOGREL 75 MG TAB ONE (09:29)
[2018-10-21] MEDS ORDERED: RX INFO: IV CONTRAST WAS GIVEN 1 EACH MISC MISCELLANE PRN (09:32)
[2018-10-21] MEDS ORDERED: FAMOTIDINE 20 MG TAB PO PRN (09:32)
--- NOTE | 2018-10-21 10:43 | PTCA ---
PERCUTANEOUSTRANS CORORONARY ANGIOGRAPHY DATE OF SERVICE: 10/21/2018 PERFORMING PHYSICIAN: Mike Langford MD, [employer]ceiving [employer]. PROCEDURE PERFORMED: 1. Successful stenting of the mid LAD using 3.5 x 18 mm Xience drug-eluting stent with good angiographic results and reduction of stenosis from 80% to 0%. 2. Fractional flow reserve (FFR) of the right coronary artery. INDICATION: This is a pleasant 53-year-old gentleman with history of smoking, who presented to the hospital a few days ago with acute inferior ST-elevation myocardial infarction. He underwent heart catheterization at that point and was found to have occluded left circumflex acutely, which was stented. He was found to have severe disease involving the mid LAD and moderate to severe disease involving the RCA. He was brought today to undergo a PCI of the LAD and fractional flow reserve (FFR) of the RCA. APPROACH: Right radial artery. COMPLICATION: None. LEVEL OF SEDATION: Moderate with sedation length of 44 minutes. PROCEDURE DESCRIPTION: After obtaining an informed consent, the patient was brought to the cardiac lab assistant. The right radial artery was cannulated using micropuncture technique, the micropuncture wire passed easily, then I placed a 6-Tamazight sheath in the right radial artery. At that point, anticoagulation was initiated using Angiomax IV and the patient was given 2 mg of verapamil IA. Subsequently, I did engage the left main using an XP3 guide. A run-through wire was used to wire the LAD. I did balloon angioplasty using 3.0 x 12 mm balloon before I deployed a 3.5 x 18 mm Xience drug-eluting stent where the stent was positioned under fluoroscopy guidance and deployed under 12 to 14 atmospheres for 20 seconds. The following angiogram showed good angiographic results and the procedure was completed without any complication. For the right coronary artery after zeroing the Doppler wire and equalizing between the Doppler wire and the guiding catheter which was JR4 guiding catheter. I did FFR per IV adenosine infusion. FFR came in to be at 0.86, which is nonischemic. POSTPROCEDURE MANAGEMENT: 1. Dual anti-platelet therapy. 2. Risk factors modifications. 3. Follow up with the patient. MMODL / IJN: [id number] /
--- NOTE | 2018-10-21 11:00 | LTR ---
October 21, 2018 Re: Osmin Gao Dear Dr. Pederson: Mr. Osmin Gao underwent successful stenting of the LAD with good angiographic results and without any complication. Thank you for allowing me to participate in his care and please do not hesitate to call with question or concern. Sincerely, MD RISHABH Monsalve / AYSE: [id number] /
[2018-10-21] MEDS: ATORVASTATIN 80 MG TAB PO SCH (20:32)
--- NOTE | 2018-10-21 22:49 | P.PN ---
Subjective this is a pleasant 53 yo M with no significant pmh who present with left side severe chest pain found to have acute non ST elevation myocardial infaction , he underwent cardiac cath and found to have complete occlusion of the circumflex art , s/p stenting . today pt was in ICU , no chest pain or dyspnea and he looks calm and comfortable. with plan to have another possible stent of his LAD in 24-48 hour. 10/18/2018 Patient's remains in the ICU today with no chest pain or dyspnea. Patient feels comfortable with vital stable. However on blood pressure on the low side but patient is asymptomatic. He is status post stent of the circumflex artery for his non-STEMI. However his blood culture growing staph with no leukocytosis or fever. Will call infectious disease consult. Patient is planned to have another calf and possible another stent in the coming 1 or 2 days. 10/19/2018 Patient remains in the ICU with no chest pain or dyspnea. Patient hemodynamically stable, labs were significant. Blood culture showing Colace negative for staph. Infectious disease been consulted. Cardiology team are following the case. 10/20/2018 pt is in ICU, no chest pain or dyspnea. Patient hemodynamically stable, plan for caridac cath in am , with possible stenting of LAD. infecious disease consult is appreciated . positive blood culture is contamination ,f/u repeat blood culture 10/21/18 pt had another cardiac catheter today with successful stenting of the LAD, pt remains in the icu for close monitoring Objective - Vital Signs Vital signs: Vital Signs Temp 98.2 F 10/21/18 20:00 Pulse 67 10/21/18 20:00 Resp 14 10/21/18 20:00 BP 118/72 10/21/18 20:00 Pulse Ox 98 10/21/18 20:00 Intake & Output 10/21/18 10/21/18 10/22/18 06:59 18:59 06:59 Intake Total 1281 Output Total 700 Balance 581 Weight 72.6 kg Intake: IV 456 Intake, IV Titration 825 Amount Sodium Chloride 0.9% 1, 825 000 ml @ 75 mls/hr IV . [id number] [facility] Rx#:[id number] Output: Urine 700 Other: Voiding Method Urinal # Voids 1 ABP, PAP, CO, CI - Last Documented Arterial Blood Pressure 140/73 - Exam GENERAL: The patient is alert and oriented x3, not in any acute distress. Well developed, well nourished. HEENT: Pupils are round and equally reacting to light. EOMI. No scleral icterus. No conjunctival pallor. Normocephalic, atraumatic. No pharyngeal erythema. No thyromegaly. CARDIOVASCULAR: S1 and S2 present. No murmurs, rubs, or gallops. PULMONARY: Chest is clear to auscultation, no wheezing or crackles. ABDOMEN: Soft, nontender, nondistended, normoactive bowel sounds. No palpable organomegaly. MUSCULOSKELETAL: No joint swelling or deformity. EXTREMITIES: No cyanosis, clubbing, or pedal edema. NEUROLOGICAL: Gross neurological examination did not reveal any focal deficits. SKIN: No rashes. - Labs CBC & Chem 7: 10/21/18 04:22 10/21/18 04:22 Labs: Abnormal Lab Results - Last 24 Hours (Table) 10/21/18 10/21/18 Range/Units 04:22 04:22 Hgb 11.8 L (13.0-17.5) gm/dL Hct 38.2 L (39.0-53.0) % MCHC 30.9 L (31.0-37.0) g/dL RDW 16.2 H (11.5-15.5) % Glucose 101 H (74-99) mg/dL Microbiology - Last 24 Hours (Table) 10/18/18 16:30 Blood Culture - Preliminary Blood No Growth after 72 hours 10/18/18 14:51 Blood Culture - Preliminary Blood No Growth after 72 hours 10/17/18 00:35 Blood Culture Gram Stain - Final Blood Blood Culture - Final Staphylococcus epidermidis Assessment and Plan Assessment: NSTEMI , s/p cardiac cath with complete occlusion of circumflex and LAD disease mild leukocytosis, resolved Positive blood culture with the staph species preserved LV function with EF of 55-60% hypertension Plan: this is a pleasant 53 yo M who present with NSTEMI , found to have complete occlusion of circumflex art, s/p stenting and cardiology team are following the case for possible evaluation and stenting of LAD , continue with dual anti- platelet therapy and statin and other antihypertensive therapy. Call infectious disease consult. Labs and medication were reviewed.. Continue same treatment. Continue with symptomatic treatment. Resume home medication. Monitor lytes and vitals. DVT and GI prophylaxis. Further recommendations of the clinical course of the patient DVT prophylaxis: Subcutaneous heparin GI Prophylaxis: Pepcid PT/OT: Pending Prognosis is guarded
[2018-10-21] MEDS: ALPRAZolam 0.5 MG TAB PO PRN (22:56)
[2018-10-22] MEDS: MORPHINE SULFATE 4 MG/ML SYRINGE IV PRN ×3 (04:36→12:16)
[2018-10-22 05:17] LABS: Anisocytosis Slight; Basophils # (A) 0.1 k/uL (0-0.2); Basophils % (A) 1 %; Eosinophils # (A) 0.2 k/uL (0-0.7); Eosinophils % (A) 3 %; HCT 38.6 % (39.0-53.0); HGB 11.6 gm/dL (13.0-17.5); Hypochromasia Slight; Lymphocytes # (A) 2.5 k/uL (1.0-4.8); Lymphocytes % (A) 38 %; MCH 26.9 pg (25.0-35.0); MCHC 30.1 g/dL (31.0-37.0); MCV 89.4 fL (80.0-100.0); Mean Platelet Volume 7.3; Monocytes # (A) 0.6 k/uL (0-1.0); Monocytes % (A) 9 %; Neutrophils # (A) 2.9 k/uL (1.3-7.7); Neutrophils % (A) 46 %; Platelet Count 257 k/uL (150-450); RBC 4.32 m/uL (4.30-5.90); RDW 16.4 % (11.5-15.5); WBC 6.4 k/uL (3.8-10.6)
[2018-10-22 05:23] LABS: Anion Gap 5 mmol/L; Blood Urea Nitrogen 14 mg/dL (9-20); Calcium 8.9 mg/dL (8.4-10.2); Carbon Dioxide 29 mmol/L (22-30); Chloride 107 mmol/L (98-107); Glucose 101 mg/dL (74-99); Potassium 5.1 mmol/L (3.5-5.1); Sodium 141 mmol/L (137-145)
[2018-10-22] MEDS: SODIUM CHLORIDE 0.9% 1,000 ML IV SCH (08:34)
[2018-10-22] MEDS: LISINOPRIL 2.5 MG TAB PO SCH (08:35)
[2018-10-22] MEDS: CLOPIDOGREL 75 MG TAB PO SCH (08:35)
[2018-10-22] MEDS: METOPROLOL TARTRATE 25 MG TAB PO SCH (08:35)
[2018-10-22] MEDS: ASPIRIN 325 MG TAB PO SCH (08:35)
[2018-10-22 12:44] VITALS: BP 110/77; RESP 12; TEMP 98.6
[2018-10-22 16:36] VITALS: PULSE 64
--- NOTE | 2018-10-22 22:17 | PN ---
PROGRESS NOTE This patient was admitted with a wqu-BR-kmiizuc-elevation myocardial infarction and underwent stent to the LAD. Patient's radial pulses are normal and vital signs remain stable. Blood pressure is 110/77 mmHg. First and second heart sounds are heard. Lungs are clear to auscultation and percussion. Patient can be discharged home and follow up with Dr. Langford as an outpatient. MMODL / IJN: [id number] /
--- NOTE | 2018-10-24 11:56 | P.DS ---
Providers Date of admission: 10/17/18 02:58 Attending physician: Brain Cohn Consults: 10/17/18 02:58 Consult Physician Urgent Consulting Provider: Mike Langford Consult Reason/Comments: Acute coronary syndrome Do you want consulting provider notified?: Yes 10/17/18 06:06 Consult Physician Routine Consulting Provider: [facility] Consult Reason/Comments: Post Interventional patient Do you want consulting provider notified?: Already Contacted 10/18/18 13:36 Consult Physician Urgent Consulting Provider: Kristi King Consult Reason/Comments: positive blood culture Do you want consulting provider notified?: Yes Primary care physician: Bg Munoz Hospital Course: Diagnoses: NSTEMI , s/p cardiac cath status pot stenting of circumflex and LAD disease mild leukocytosis, resolved Positive blood culture with the staph species preserved LV function with EF of 55-60% hypertension Hospital course: This is a pleasant 53 years old male who presents because of severe chest pain and non-STEMI. He underwent cardiac cath by cardiology team and found to have coronary artery disease, he got stents in his circumflex artery and LAD. Patient tolerated the procedure well. Patient currently denies chest pain or dyspnea. No nausea vomiting. No change in urine or bowel habits. No dizziness or palpitation. Patient prescribed to be on dual antiplatelet therapy , statin, lisinopril, metoprolol Patient was cleared by cardiology team for discharge. He had a positive blood culture with Staphylococcus epidermidis, infectious disease sap payroll consultant, found that to be contamination. Patient remains asymptomatic with no leukocytosis or fever. Patient himself felt ready to be discharged home. Problems and management plan was discussed with the patient and he verbalized understanding and acceptance Patient was found stable and can be discharged home however he needs follow up as an outpatient. pt agrees with appointment made for him and states he will follow up Gen: patient is a AAOx3, no distress CVS: S1-S2, RRR, no murmur Lungs: B/L CTA, no wheezing Abdomen: soft, no distention, no tenderness, positive bowel sounds Extremity: no leg edema or induration Time spent more than 35 minutes Patient Condition at Discharge: Serious Plan - Discharge Summary Discharge Rx Participant: No New Discharge Prescriptions: New Aspirin 325 mg PO DAILY #30 tab Atorvastatin [Lipitor] 80 mg PO HS #30 tab Clopidogrel [Plavix] 75 mg PO DAILY #30 tab Famotidine [Pepcid] 20 mg PO HS PRN #30 tab PRN Reason: Indigestion Lisinopril [Zestril] 2.5 mg PO DAILY #30 tab Metoprolol Tartrate [Lopressor] 25 mg PO BID #60 tab Nitroglycerin Sl Tabs [Nitrostat] 0.4 mg SUBLINGUAL Q5M PRN #30 tab PRN Reason: Chest Pain Discharge Medication List Aspirin 325 mg PO DAILY #30 tab 10/22/18 [Rx] Atorvastatin [Lipitor] 80 mg PO HS #30 tab 10/22/18 [Rx] Clopidogrel [Plavix] 75 mg PO DAILY #30 tab 10/22/18 [Rx] Famotidine [Pepcid] 20 mg PO HS PRN #30 tab 10/22/18 [Rx] Lisinopril [Zestril] 2.5 mg PO DAILY #30 tab 10/22/18 [Rx] Metoprolol Tartrate [Lopressor] 25 mg PO BID #60 tab 10/22/18 [Rx] Nitroglycerin Sl Tabs [Nitrostat] 0.4 mg SUBLINGUAL Q5M PRN #30 tab 10/22/18 [Rx ] Follow up Appointment(s)/Referral(s): Tammy Pederson MD [Primary Care Provider] - 10/27/18 2:40 pm Mike Langford MD [STAFF PHYSICIAN] - 11/03/18 3:45 pm Kristi King MD [STAFF PHYSICIAN] - 11/03/18 9:15 am Patient Instructions/Handouts: Heart Catheterization (DC) Activity/Diet/Wound Care/Special Instructions: Cardiac diet Activity is limited till you see your doctor Discharge Disposition: HOME SELF-CARE
== END 2018-10-22 17:40 | disposition home or self-care (01) | DRG 247 ==
LOC: EC 20:38 → 2SICU 10-17 02:58
PROVIDERS: ADMIT Hospitalist; ATTEND Hospitalist
PROC: 4A023N7 Measurement of Cardiac Sampling and Pressure, Left Heart, Percutaneous Approach (ICD-10-PCS; 2018-10-17)
PROC: B2111ZZ Fluoroscopy of Multiple Coronary Arteries using Low Osmolar Contrast (ICD-10-PCS; 2018-10-17)
PROC: 027034Z Dilation of Coronary Artery, One Artery with Drug-eluting Intraluminal Device, Percutaneous Approach (ICD-10-PCS; principal; 2018-10-17 05:05)
PROC: 4A033BC Measurement of Arterial Pressure, Coronary, Percutaneous Approach (ICD-10-PCS; 2018-10-21)
PROC: 027034Z Dilation of Coronary Artery, One Artery with Drug-eluting Intraluminal Device, Percutaneous Approach (ICD-10-PCS; 2018-10-21 08:05)
DX: I21.4 Non-ST elevation (NSTEMI) myocardial infarction (principal); R78.81 Bacteremia; B18.2 Chronic viral hepatitis C; D72.829 Elevated white blood cell count, unspecified; F17.210 Nicotine dependence, cigarettes, uncomplicated; I10 Essential (primary) hypertension; I25.10 Atherosclerotic heart disease of native coronary artery without angina pectoris; F32.9 Major depressive disorder, single episode, unspecified; G89.29 Other chronic pain; M54.5 Low back pain; Z88.5 Allergy status to narcotic agent; Z82.49 Family history of ischemic heart disease and other diseases of the circulatory system
CPT/HCPCS: 36415; 71046; 71275; 74174; 80048; 80053; 80061; 81003; 82550; 82553; 83735; 84100; 84484; 85025; 85379; 85610; 85730; 87040; 87077; 87086; 87186; 93005; 93306; 93458; 93571; 96365; 96366; 96368; 96375; 96376; 99285; C1874

== ENCOUNTER 2019-06-15 12:07 | Observation (INO) | payer OTHER ==
[2019-06-15 12:58] LABS: Anisocytosis Slight; Basophils % (A) 0 %; Eosinophils # (A) 0.3 k/uL (0-0.7); Eosinophils % (A) 3 %; HCT 43.6 % (39.0-53.0); HGB 14.1 gm/dL (13.0-17.5); Lymphocytes # (A) 4.5 k/uL (1.0-4.8); Lymphocytes % (A) 46 %; MCH 28.2 pg (25.0-35.0); MCHC 32.3 g/dL (31.0-37.0); Mean Platelet Volume 6.8; Monocytes # (A) 0.6 k/uL (0-1.0); Monocytes % (A) 6 %; Neutrophils # (A) 4.1 k/uL (1.3-7.7); Neutrophils % (A) 41 %; Platelet Count 269 k/uL (150-450); RBC 5.01 m/uL (4.30-5.90); WBC 9.9 k/uL (3.8-10.6)
--- NOTE | 2019-06-15 13:00 | XR ---
EXAMINATION TYPE: XR chest 2V DATE OF EXAM: 06/15/2019 COMPARISON: 10/16/2018 HISTORY: Shortness of breath with left-sided chest pain and pressure for 3 days TECHNIQUE: Frontal and lateral views of the chest are obtained. FINDINGS: There is no focal air space opacity, pleural effusion, or pneumothorax seen. The cardiac silhouette size is within normal limits. The osseous structures are intact. IMPRESSION: No acute cardiopulmonary process.
[2019-06-15 13:05] LABS: African American GFR (CKD) >90 (>60 ml/min/1.73 sqM); Albumin 4.8 g/dL (3.5-5.0); Anion Gap 13 mmol/L; Blood Urea Nitrogen 17 mg/dL (9-20); Calcium 10.2 mg/dL (8.4-10.2); Carbon Dioxide 23 mmol/L (22-30); Chloride 105 mmol/L (98-107); Glucose 92 mg/dL (74-99); Sodium 141 mmol/L (137-145); Total Bilirubin 0.8 mg/dL (0.2-1.3); Total Protein 9.3 g/dL (6.3-8.2)
[2019-06-15 13:07] LABS: INR 1.1 (<1.2); Partial Thromboplastin Time 27.7 sec (22.0-30.0); Prothrombin Time 11.5 sec (9.0-12.0)
[2019-06-15 13:10] LABS: ALT 218 U/L (21-72); AST 157 U/L (17-59); Alkaline Phosphatase 111 U/L (38-126); Magnesium 1.7 mg/dL (1.6-2.3)
--- NOTE | 2019-06-15 13:39 | ED ---
Chest Pain HPI - General Chief Complaint: Chest Pain Stated Complaint: Chest pain Time Seen by Provider: 06/15/19 12:18 Source: patient Mode of arrival: ambulatory Limitations: no limitations - History of Present Illness Initial Comments: The patient is a 53 year old male with past medical history of coronary artery disease who presents to the emergency room with reported chest pain. He states it has been intermittent chest pain for the past week. States it is located over the left side of his chest. Described as a pressure sensation without radiation. There is associated nausea without vomiting. Admits exertional shortness of breath. Denies pleuritic chest pain. No ripping or tearing sensation to his back. Does report of similar nature to when he was hospitalized in October and had stents placed. He had follow-up with Dr. Langford. Reports his next visit will be in September. He does have nitro at home that he can take for chest pain. States she took and it did alleviate his symptoms. He denies a history of DVT or PE. No calf pain or swelling. Denies recent travel or prolonged immobility. Recent surgeries. Denies family history of clotting disorders. Denies ripping or tearing sensation to his back. No fevers, chills, cough, hemoptysis. There are no other alleviating, precipitating or modifying factors - Related Data Previous Rx's Medication Instructions Recorded Atorvastatin [Lipitor] 80 mg PO HS #30 tab 10/22/18 Clopidogrel [Plavix] 75 mg PO DAILY #30 tab 10/22/18 Lisinopril [Zestril] 2.5 mg PO DAILY #30 tab 10/22/18 Aspirin 81 mg PO DAILY #30 tab 06/16/19 Metoprolol Tartrate [Lopressor] 12.5 mg PO BID #60 tab 06/16/19 Allergies Allergy/AdvReac Type Severity Reaction Status Date / Time codeine AdvReac Nausea & Verified 06/15/19 12:58 Vomiting/ITCH Review of Systems ROS Statement: Those systems with pertinent positive or pertinent negative responses have been documented in the HPI. ROS Other: All systems not noted in ROS Statement are negative. EKG Findings - EKG Comments: EKG Findings:: EKG demonstrates a sinus bradycardia with a first-degree AV block. Rate of 50. NM interval is 224. QRS 88. QTC 390. There are no acute ST segment elevations or depressions concerning for ischemic changes Past Medical History Past Medical History: Myocardial Infarction (AR) Additional Past Medical History / Comment(s): right shoulder pain, back pain History of Any Multi-Drug Resistant Organisms: None Reported Past Surgical History: Heart Catheterization With Stent, Orthopedic Surgery Additional Past Surgical History / Comment(s): left leg, left knee Past Anesthesia/Blood Transfusion Reactions: No Reported Reaction Date of Last Stent Placement:: 10/16/18 Past Psychological History: Depression Smoking Status: Current every day smoker Past Alcohol Use History: Occasional Past Drug Use History: Cocaine, Heroin - Past Family History Father Family Medical History: Coronary Artery Disease (CAD), Respiratory Disorder Additional Family Medical History / Comment(s): Father at the age of 75 yrs. Mother Family Medical History: No Reported History Additional Family Medical History / Comment(s): Mother is healthy General Exam Limitations: no limitations General appearance: alert, in no apparent distress Head exam: Present: atraumatic, normocephalic, normal inspection Eye exam: Present: normal appearance, PERRL, EOMI. Absent: scleral icterus, conjunctival injection, periorbital swelling ENT exam: Present: normal exam, mucous membranes moist Neck exam: Present: normal inspection. Absent: tenderness, meningismus, lymphadenopathy Respiratory exam: Present: normal lung sounds bilaterally. Absent: respiratory distress, wheezes, rales, rhonchi, stridor Cardiovascular Exam: Present: regular rate, normal rhythm, normal heart sounds. Absent: systolic murmur, diastolic murmur, rubs, gallop, clicks GI/Abdominal exam: Present: soft, normal bowel sounds. Absent: distended, tenderness, guarding, rebound, rigid Extremities exam: Present: normal inspection, full ROM, normal capillary refill. Absent: tenderness, pedal edema, joint swelling, calf tenderness Back exam: Present: normal inspection Neurological exam: Present: alert, oriented X3, CN II-XII intact Psychiatric exam: Present: normal affect, normal mood Skin exam: Present: warm, dry, intact, normal color. Absent: rash Course Vital Signs 06/15/19 06/15/19 12:08 15:05 Temperature 97.6 F Pulse Rate 56 L 49 L Respiratory 16 18 Rate Blood Pressure 128/83 115/77 O2 Sat by Pulse 99 99 Oximetry Chest Pain MDM - MDM Upon arrival the patient was placed into room 10. A thorough history and phy sical exam was performed. A 12-lead EKG was performed which demonstrated a normal sinus rhythm. Laboratory studies were conducted. A CBC, CMP and coags were unremarkable. First troponin is negative. The patient does have an elevated AST and ALT. This is compared to previous and he did have elevated liver enzymes in the past. Chest x-ray demonstrates no acute cardiopulmonary process. I did review the patient's records. Does appear that he had 2 vessels which were stented in October. His RCA did have a 60-70% occlusion for which no intervention was performed. I did recommend that the patient be hospitalized with a cardio consult. The patient did agree to this. I did provide him with 324 mg of chewable aspirin. The patient's blood pressure remains moderately low and therefore I did hold nitro. I called and discussed the case with Dr. Cage accepted admission. Bridging orders are placed in the patient is transferred to the floor Disposition Clinical Impression: Chest pain Disposition: ADMITTED IP TO THIS HOSP Condition: Stable Is patient prescribed a controlled substance at d/c from ED?: No Decision to Admit Reason: Admit from EC Decision Date: 06/15/19 Decision Time: 14:36
[2019-06-15] MEDS ORDERED: NALOXONE 0.4 MG/ML 1 ML VIAL IV PRN (14:36)
[2019-06-15] MEDS ORDERED: ASPIRIN 81 MG PO STA (14:39)
[2019-06-15] MEDS: NITROGLYCERIN OINT 1 INCH/GM PACKET TOPICAL SCH ×2 (15:44→23:49)
[2019-06-15] MEDS ORDERED: MAG HYDROX/AL HYDROX/SIMETH 30 ML CUP PO ONE (17:46)
[2019-06-15 19:32] VITALS: RESP 18
[2019-06-15] MEDS ORDERED: ACETAMINOPHEN TAB 325 MG TAB PO PRN (19:52)
[2019-06-15] MEDS ORDERED: METOPROLOL TARTRATE 25 MG TAB PO SCH (21:00)
[2019-06-15] MEDS ORDERED: ATORVASTATIN 80 MG TAB PO SCH (21:00)
--- NOTE | 2019-06-15 22:01 | P.HPIM ---
History of Present Illness H&P Date: 06/15/19 Chief Complaint: Chest pain Patient is a 53-year-old male with a known history of coronary artery system status post stent 2 placement in October 2018 came to ER with complaints of chest pain. Patient has been having chest pain mainly left lower breast margin without any radiation. Patient has been having these symptoms of sharp pain for the past 4 days. Denied any increase of pain with deep breathing. Patient says that sometimes pain is associated with dizziness when standing up. Patient says that he has also been having exertional short of breath. Patient felt very lethargic during the weekend and could not do anything. Patient had this pain again this morning and did take nitroglycerin which seemed to improve his symptoms. No diaphoresis. Patient is a ER for further evaluation. Patient says that sometimes pain is the midsternal area and going down to his right side of the abdomen. Denied any relief of pain with food intake. Denied any leg swelling. No orthopnea no PND. No fever no chills. No cough or sputum production. No wheezing. Patient continues to smoke daily. EKG showed sinus bradycardia with first degree AV block. Chest x-ray showed no acute cardio pulmonary process. AST and ALT 157 and 218 Troponin 2 negative Review of Systems Constitutional: Patient denies any fever or chills . No generalized weakness or weight loss. Abdomen: Patient denied nausea vomiting and diarrhea and abdominal pain. Cardiovascular: Patient does have chest pain with associated exertional short of breath no palpitations. Respiratory: patient denied any cough is from production. No shortness of b reath Neurologic: Patient denied any numbness or tingling headache. Musculoskeletal: Patient denies any complaints of joint swelling or deformity. Skin: Negative Psychiatric: Negative Endocrine: No heat or cold intolerance. No recent weight gain. Genitourinary: No dysuria or hematuria. All other 14 point ROS negative except the above Past Medical History Past Medical History: Myocardial Infarction (SC) Additional Past Medical History / Comment(s): right shoulder pain, back pain Last Myocardial Infarction Date:: 2018 History of Any Multi-Drug Resistant Organisms: None Reported Past Surgical History: Heart Catheterization With Stent, Orthopedic Surgery Additional Past Surgical History / Comment(s): left leg/knee surgery with hardware, 2 cardiac stents Past Anesthesia/Blood Transfusion Reactions: No Reported Reaction Date of Last Stent Placement:: 10/16/18 Past Psychological History: Depression Additional Psychological History / Comment(s): Pt resides with his significant other. He uses no assistive device. He does not drive, he gets places by family, bus or cab. Smoking Status: Current every day smoker Past Alcohol Use History: Occasional Additional Past Alcohol Use History / Comment(s): Pt started smoking in 1980 and is a ppd smoker. Past Drug Use History: Cocaine, Heroin Additional Drug Use History / Comment(s): Pt states he last used cocaine, heroin yesterday, 10/16/18 - Past Family History Father Family Medical History: Coronary Artery Disease (CAD), Respiratory Disorder Additional Family Medical History / Comment(s): Father at the age of 75 yrs. Mother Family Medical History: No Reported History Additional Family Medical History / Comment(s): Mother is healthy Medications and Allergies Home Medications Medication Instructions Recorded Confirmed Type Aspirin 325 mg PO DAILY #30 tab 10/22/18 06/15/19 Rx Atorvastatin [Lipitor] 80 mg PO HS #30 tab 10/22/18 06/15/19 Rx Clopidogrel [Plavix] 75 mg PO DAILY #30 tab 10/22/18 06/15/19 Rx Lisinopril [Zestril] 2.5 mg PO DAILY #30 tab 10/22/18 06/15/19 Rx Metoprolol Tartrate [Lopressor] 25 mg PO BID #60 tab 10/22/18 06/15/19 Rx Allergies Allergy/AdvReac Type Severity Reaction Status Date / Time codeine AdvReac Nausea & Verified 06/15/19 12:58 Vomiting/ITCH Physical Exam Vitals: Vital Signs Temp Pulse Pulse Resp BP BP Pulse Ox 06/15/19 16:00 55 L 14 06/15/19 15:41 97.6 F 55 L 14 127/83 98 06/15/19 15:05 49 L 18 115/77 99 06/15/19 12:08 97.6 F 56 L 16 128/83 99 Intake and Output 06/15/19 06/15/19 06/15/19 06:59 14:59 22:59 Other: Voiding Method Toilet Weight 81.647 kg PHYSICAL EXAMINATION: Patient is lying in the bed comfortably, no acute distress, awake alert and oriented.. HEENT: Normocephalic. Neck is supple. Pupils reactive. Nostrils clear. Oral cavity is moist. Ears reveal no drainage. Neck reveals no JVD, carotid bruits, or thyromegaly. CHEST EXAMINATION: Trachea is central. Symmetrical expansion. Lung garcia clear to auscultation and percussion. CARDIAC: Normal S1, S2 with no gallops. No murmurs ABDOMEN: Soft. Bowel sounds normal. No organomegaly. No abdominal bruits. Extremities: reveal no edema. No clubbing or cyanosis Neurologically awake, alert, oriented x3 with well-coordinated movements. No f ocal deficits noted Skin: No rash or skin lesions. Psychiatric: Coperative. Nonsuicidal Musculoskeletal: No joint swelling or deformity. Normal range of motion. Results CBC & Chem 7: 06/15/19 12:30 06/15/19 12:30 Labs: Abnormal Lab Results - Last 24 Hours (Table) 06/15/19 06/15/19 Range/Units 12:30 12:30 RDW 16.0 H (11.5-15.5) % AST 157 H (17-59) U/L ALT 218 H (21-72) U/L Total Protein 9.3 H (6.3-8.2) g/dL Thrombosis Risk Factor Assmnt - DVT/VTE Prophylaxis DVT/VTE Prophylaxis: Pharmacologic Prophylaxis ordered - Choose All That Apply Any of the Below Risk Factors Present?: Yes Each Factor Represents 1 point: Age 41-60 years Other Risk Factors: No Other congenital or acquired thrombophilia - If yes, enter type in comment: No Thrombosis Risk Factor Assessment Total Risk Factor Score: 1 Thrombosis Risk Factor Assessment Level: Low Risk Assessment and Plan Assessment: Atypical chest pain. Rule out ACS. Slightly elevated liver enzymes could be secondary to statin. Coronary artery disease with history of stent 2 placement in October 2089 History of SC Right shoulder pain and chronic back pain Depression Nicotine addiction ongoing History of cocaine Heroin Abuse DVT prophylaxis. Plan: Patient will be continued on telemetry monitoring. Troponin 2 negative. EKG showed normal sinus rhythm. Continue with aspirin Plavix and beta blockers. Will get US abdomen due to slightly elevated liver enzymes. Continue the home medications and follow closely. Cardiology was consulted. Further recommendations based on the clinical course. Smoking cessation has been counseled. Time with Patient: Greater than 30
[2019-06-16] MEDS: NITROGLYCERIN OINT 1 INCH/GM PACKET TOPICAL SCH (06:18)
[2019-06-16] MEDS ORDERED: ASPIRIN 81 MG PO SCH (09:00)
[2019-06-16] MEDS ORDERED: ASPIRIN 325 MG TAB PO SCH (09:00)
[2019-06-16] MEDS ORDERED: CLOPIDOGREL 75 MG TAB PO SCH (09:00)
[2019-06-16] MEDS ORDERED: LISINOPRIL 2.5 MG TAB PO SCH (09:00)
--- NOTE | 2019-06-16 09:00 | US ---
EXAMINATION TYPE: US abdomen complete DATE OF EXAM: 06/16/2019 COMPARISON: CT CLINICAL HISTORY: right upper quadrant pain . Pt states chest pain EXAM MEASUREMENTS: Liver Length: 16.2 cm Gallbladder Wall: 0.2 cm CBD: 0.5 cm Spleen: 14.8 cm Right Kidney: 10.8 x 3.9 x 4.7 cm Left Kidney: 11.6 x 4.4 x 5.3 cm Pancreas: Limited by overlying bowel gas. Visualized portions within normal limits. Liver: wnl Gallbladder: wnl Evidence for sonographic Khan's sign: No CBD: wnl Spleen: Enlarged Right Kidney: wnl Left Kidney: wnl Upper IVC: wnl Abd Aorta: wnl, distal portion obscured by overlying bowel gas The liver is homogenous. The intrahepatic portion of the IVC and proximal abdominal aorta are within normal limits. There is no evidence of cholelithiasis. Common bile duct is unremarkable. The visu alized portions of the pancreas are homogenous. The spleen is unremarkable. Kidneys are symmetric a nd free of hydronephrosis. No renal lesions are seen. IMPRESSION: 1. Borderline splenomegaly.
--- NOTE | 2019-06-16 10:34 | P.CRDCN ---
History of Present Illness History of present illness: This is a pleasant 53-year-old male past medical history significant for myocardial infarction status post recent stent placement, hypertension, dyslipidemia, chronic nicotine dependence, history of cocaine and heroin use. He recently had an AZ in October 2018 with stents placed to the LAD and circumflex with a lesion in the RCA that was 0.86 on FFR. He follows with Dr. Langford. He underwent an exercise stress test in the office 10/2018 prior to starting cardiac rehab however he never attended rehab. We have been asked to see him in consultation secondary to chest pain. He states on he walked approximately 3 miles and after coming home he noticed he was extremely fatigued which is abnormal for him. He went to sleep on night with a mild achy sensation in the midsternal region. All day Saturday he continued to have chest discomfort described as intermittent sharp pains. The discomfort was not worse with exertion or activity. He states in fact he attempted to physically exert himself and see if he could exacerbate the pain. There is no radiation to the arm, back, neck or jaw. Was not associated with shortness of breath, dizziness, nausea, vomiting, palpitations or diaphoresis. He is seen and examined resting comfortably lying flat in bed in no acute distress. He continues to feel a sharp discomfort at times intermittently not associated with any specific aggravating factor. EKG reveals sinus mechanism with a first-degree AV block heart rate of 50. Telemetry tracings reveal sinus bradycardia, heart rate in the mid-40's. Chest x-ray is negative for an acute cardiopulmonary process. Abdominal ultrasound reveals borderline splenomegaly with the liver is homogenous, intrahepatic portion of Miley C proximal dominant are within normal limits no evidence of cholelithiasis and common bile ducts unremarkable. Laboratory data reviewed, CBC unremarkable, sodium 141, potassium 5, creatinine 0.75, magnesium 1.7, AST 157, ALT 218, cardiac enzymes negative 3, NT proBNP 119. Current cardiac medications include aspirin 325 mg daily, atorvastatin 80 mg daily, Plavix 75 mg daily, lisinopril 2.5 mg daily and Lopressor 25 mg twice a day. Most recent echocardiogram obtained October 2018 reveals preserved LV systolic function with ejection fraction 55-60% At the time of my exam: CONSTITUTIONAL: Denies fever. Denies chills. EYES: Denies blurred vision. Denies vision changes. Denies eye pain. EARS, NOSE, MOUTH & THROAT: Denies headache. Denies sore throat. Denies ear pain. CARDIOVASCULAR: Denies chest pain. Denies shortness of breath. Denies orthopnea. Denies PND. Denies palpitations. RESPIRATORY: Denies cough. GASTROINTESTINAL: Denies abdominal pain. Denies diarrhea. Denies constipation. Denies nausea. Denies vomiting. MUSCULOSKELETAL: Denies myalgias. INTEGUMENTARY: Denies pruitis. Denies rash. NEUROLOGIC: Denies numbness. Denies tingling. Denies weakness. PSYCHIATRIC: Denies anxiety. Denies depression. ENDOCRINE: Denies fatigue. Denies weight change. Denies polydipsia. Denies polyurina. GENITOURINARY: Denies burning, hematuria or urgency with micturation. HEMATOLOGIC: Denies history of anemia. Denies bleeding. Blood pressure 97/58 heart rate 54 afebrile maintaining oxygen saturation on room air GENERAL: This is a 53-year-old male in no apparent distress at the time of my examination. HEENT: Head is atraumatic, normocephalic. Pupils are equal, round. Sclerae anicteric. Conjunctivae are clear. Mucous membranes of the mouth are moist. Neck is supple. There is no jugular venous distention. No carotid bruit is heard. LUNGS: Clear to auscultation no wheezes, rales or rhonchi. No chest wall tenderness is noted on palpation or with deep breathing. HEART: Regular rate and rhythm without murmurs, rubs or gallops. S1 and S2 heard. ABDOMEN: Soft, nontender. Bowel sounds are heard. No organomegaly noted. EXTREMITIES: No evidence of peripheral edema and no calf tenderness noted. VASCULAR: Radial and dorsalis pedis pulses palpated, no evidence of clubbing. NEUROLOGIC: Patient is awake, alert and oriented x3. ASSESSMENT Chest pain, an acute coronary event has been ruled out. No EKG changes or troponin elevation. History of coronary artery disease s/p stent placement to the LAD and circumflex artery in the setting of a NSTEMI 10/2018 with borderline lesion in the RCA with negative FFR of 0.86 Hypertension Dyslipidemia History of hepatitis C History of IV drug use in the past Chronically elevated liver enzymes Chronic nicotine dependence PLAN An acute coronary event has been ruled out. Pain is atypical for angina, however he has significant risk factors and unfortunately continues to smoke. Recommend proceeding with stress echocardiogram to assess for stress induced ischemia. Obtain 2D echocardiogram and doppler study to assess cardiac structure and function. Decrease aspirin to 81 mg daily and lopressor to 12.5 mg BID. Recommend tobacco cessation. Continue plavix, atorvastatin, lopressor and lisinopril as previously ordered. Thank you kindly for this consultation. Nurse Practitioner note has been reviewed, I agree with a documented findings and plan of care. Patient was seen and examined. Past Medical History Past Medical History: Myocardial Infarction (AZ) Additional Past Medical History / Comment(s): right shoulder pain, back pain Last Myocardial Infarction Date:: 2018 History of Any Multi-Drug Resistant Organisms: None Reported Past Surgical History: Heart Catheterization With Stent, Orthopedic Surgery Additional Past Surgical History / Comment(s): left leg/knee surgery with hardware, 2 cardiac stents Past Anesthesia/Blood Transfusion Reactions: No Reported Reaction Date of Last Stent Placement:: 10/16/18 Past Psychological History: Depression Additional Psychological History / Comment(s): Pt resides with his significant other. He uses no assistive device. He does not drive, he gets places by family, bus or cab. Smoking Status: Current every day smoker Past Alcohol Use History: Occasional Additional Past Alcohol Use History / Comment(s): Pt started smoking in 1980 and is a ppd smoker. Past Drug Use History: Cocaine, Heroin Additional Drug Use History / Comment(s): Pt states he last used cocaine, heroin yesterday, 10/16/18 - Past Family History Father Family Medical History: Coronary Artery Disease (CAD), Respiratory Disorder Additional Family Medical History / Comment(s): Father at the age of 75 yrs. Mother Family Medical History: No Reported History Additional Family Medical History / Comment(s): Mother is healthy Medications and Allergies Home Medications Medication Instructions Recorded Confirmed Type Aspirin 325 mg PO DAILY #30 tab 10/22/18 06/15/19 Rx Atorvastatin [Lipitor] 80 mg PO HS #30 tab 10/22/18 06/15/19 Rx Clopidogrel [Plavix] 75 mg PO DAILY #30 tab 10/22/18 06/15/19 Rx Lisinopril [Zestril] 2.5 mg PO DAILY #30 tab 10/22/18 06/15/19 Rx Metoprolol Tartrate [Lopressor] 25 mg PO BID #60 tab 10/22/18 06/15/19 Rx Allergies Allergy/AdvReac Type Severity Reaction Status Date / Time codeine AdvReac Nausea & Verified 06/15/19 12:58 Vomiting/ITCH Physical Exam Vitals: Vital Signs Temp Pulse Pulse Resp BP BP BP 06/16/19 07:10 97.5 F L 54 L 18 97/58 06/16/19 04:00 97.6 F 54 L 18 106/67 06/16/19 03:10 18 06/16/19 00:00 18 06/15/19 23:43 97.7 F 51 L 18 139/68 06/15/19 20:00 18 06/15/19 19:31 98.2 F 54 L 18 125/66 06/15/19 16:00 55 L 14 06/15/19 15:41 97.6 F 55 L 14 127/83 06/15/19 15:05 49 L 18 115/77 06/15/19 12:08 97.6 F 56 L 16 128/83 Pulse Ox 06/16/19 07:10 97 06/16/19 04:00 97 06/16/19 03:10 06/16/19 00:00 06/15/19 23:43 96 06/15/19 20:00 06/15/19 19:31 97 06/15/19 16:00 06/15/19 15:41 98 06/15/19 15:05 99 06/15/19 12:08 99 Intake and Output 06/15/19 06/16/19 06/16/19 22:59 06:59 14:59 Other: Voiding Method Toilet Toilet # Voids 1 1 Results 06/15/19 12:30 06/15/19 12:30 Cardiac Enzymes 06/15/19 06/15/19 06/15/19 Range/Units 12:30 12:30 18:58 AST 157 H (17-59) U/L Troponin I <0.012 <0.012 (0.000-0.034) ng/mL 06/16/19 Range/Units 00:46 AST (17-59) U/L Troponin I <0.012 (0.000-0.034) ng/mL Coagulation 06/15/19 Range/Units 12:30 PT 11.5 (9.0-12.0) sec APTT 27.7 (22.0-30.0) sec CBC 06/15/19 Range/Units 12:30 WBC 9.9 (3.8-10.6) k/uL RBC 5.01 (4.30-5.90) m/uL Hgb 14.1 (13.0-17.5) gm/dL Hct 43.6 (39.0-53.0) % Plt Count 269 (150-450) k/uL Comprehensive Metabolic Panel 06/15/19 Range/Units 12:30 Sodium 141 (137-145) mmol/L Potassium 5.0 (3.5-5.1) mmol/L Chloride 105 (98-107) mmol/L Carbon Dioxide 23 (22-30) mmol/L BUN 17 (9-20) mg/dL Creatinine 0.75 (0.66-1.25) mg/dL Glucose 92 (74-99) mg/dL Calcium 10.2 (8.4-10.2) mg/dL AST 157 H (17-59) U/L ALT 218 H (21-72) U/L Alkaline Phosphatase 111 (38-126) U/L Total Protein 9.3 H (6.3-8.2) g/dL Albumin 4.8 (3.5-5.0) g/dL Current Medications Generic Name Dose Route Start Last Admin Trade Name Freq PRN Reason Stop Dose Admin Acetaminophen 650 mg 06/15/19 19:52 06/15/19 19:58 Tylenol Tab PO 650 mg Q4HR PRN Administration Fever and/ or Pain Aspirin 325 mg 06/16/19 09:00 Aspirin PO DAILY [facility] Atorvastatin Calcium 80 mg 06/15/19 21:00 06/15/19 19:58 Lipitor PO 80 mg HS ANN Administration Clopidogrel Bisulfate 75 mg 06/16/19 09:00 Plavix PO DAILY [facility] Lisinopril 2.5 mg 06/16/19 09:00 Zestril PO DAILY [facility] Metoprolol Tartrate 25 mg 06/15/19 21:00 06/15/19 19:59 Lopressor PO 25 mg BID ANN Administration Naloxone HCl 0.2 mg 06/15/19 14:36 Narcan IV Q2M PRN Opioid Reversal Nitroglycerin 0.5 inch 06/15/19 18:00 06/16/19 06:18 Nitro-Bid Oint TOPICAL Not Given Q6HR ANN Intake and Output 06/15/19 06/16/19 06/16/19 22:59 06:59 14:59 Other: Voiding Method Toilet Toilet # Voids 1 1 06/15/19 12:30 06/15/19 12:30
[2019-06-16] MEDS ORDERED: METOPROLOL TARTRATE 12.5 MG TAB PO SCH (10:45)
--- NOTE | 2019-06-16 12:01 | ECHOF ---
Referral Reason:cp MEASUREMENTS -------- HEIGHT: 188.0 cm WEIGHT: 81.6 kg BP: 102/55 RVIDd: 4.3 cm (< 3.3) IVSd: 1.3 cm (0.6 - 1.1) LVIDd: 4.7 cm (3.9 - 5.3) LVPWd: 1.1 cm (0.6 - 1.1) IVSs: 1.4 cm LVIDs: 3.3 cm LVPWs: 1.7 cm LAESV Index (A-L): 49.70 ml/m Ao Diam: 3.1 cm (2.0 - 3.7) AV Cusp: 2.1 cm (1.5 - 2.6) LA Diam: 4.2 cm (2.7 - 3.8) TAPSE: 2.8 cm MV EXCURSION: 12.973 mm (> 18.000) MV EF SLOPE: 114 mm/s (70 - 150) EPSS: 0.8 cm MV E All: 0.82 m/s MV DecT: 212 ms MV A All: 0.65 m/s MV E/A Ratio: 1.28 RAP: 5.00 mmHg RVSP: 33.49 mmHg FINDINGS -------- Resting bradycardia (HR<60bpm). This was a technically good study. The left ventricular size is normal. There is mild concentric left ventricular hypertrophy. Overa ll left ventricular systolic function is normal with, an EF between 55 - 60 %. The diastolic fillin g pattern is normal for the age of the patient 10.00. The right ventricle is moderate to severely enlarged. LA is severely dilated >40 ml/m2 The right atrial size is normal. Interatrial and interventricular septum intact. The aortic valve is trileaflet and appears structurally normal. There is no evidence of aortic regu rgitation. There is no evidence of aortic stenosis. Mild mitral regurgitation is present. Mild tricuspid regurgitation present. There is no evidence of pulmonary hypertension. The right v entricular systolic pressure, as measured by Doppler, is 33.49mmHg. There is no pulmonic regurgitation present. The aortic root size is normal. Normal inferior vena cava with normal inspiratory collapse consistent with estimated right atrial pre ssure of 5 mmHg. There is no pericardial effusion. CONCLUSIONS -------- 1. Resting bradycardia (HR<60bpm). 2. This was a technically good study. 3. The left ventricular size is normal. 4. There is mild concentric left ventricular hypertrophy. 5. Overall left ventricular systolic function is normal with, an EF between 55 - 60 %. 6. The diastolic filling pattern is normal for the age of the patient 10.00 7. The right ventricle is moderate to severely enlarged. 8. LA is severely dilated >40 ml/m2 9. The right atrial size is normal. 10. Interatrial and interventricular septum intact. 11. The aortic valve is trileaflet and appears structurally normal. 12. There is no evidence of aortic regurgitation. 13. There is no evidence of aortic stenosis. 14. Mild mitral regurgitation is present. 15. Mild tricuspid regurgitation present. 16. There is no evidence of pulmonary hypertension. 17. The right ventricular systolic pressure, as measured by Doppler, is 33.49mmHg. 18. There is no pulmonic regurgitation present. 19. The aortic root size is normal. 20. Normal inferior vena cava with normal inspiratory collapse consistent with estimated right atrial pressure of 5 mmHg. 21. There is no pericardial effusion. STORE LEADER: Joanne Steinberg RDCS
[2019-06-16 15:27] VITALS: BP 135/72; PULSE 65; TEMP 98.1
--- NOTE | 2019-06-16 18:51 | P.STRESS ---
- Stress Test Note Stress Test Results/Findings: Exam Performed: stress echo exercise Exam Date: 06/16/19 Reason for Exam: CP Height: 6 ft 2 in Weight: 81.647 kg Protocol: STRESS ECHO Stage: 5 Duration of Exercise: 12:16 Resting Heart Rate: 58 Resting Blood Pressure: 95/58 Maximum Achieved Heart Rate: 140 Maximum Achieved Blood Pressure: 161/78 85% PMHR: 143 100% PMHR: 168 METS: 12.5 Technologist Comment: Stress Test Results/Findings: This is a 53-year-old gentleman with history of of hypertension, hypercholesteremia smoking history with previous stent placement being evaluated for symptoms of chest pain and shortness of breath. Stress data:. Baseline EKG showed a sinus rhythm with normal NE interval, QRS duration. Blood pressure at rest is 95/58% of 58. Patient walked on the Syd protocol for 12 minutes achieving a maximum heart rate of 141 with a blood pressure about 160/78. EKGs taken during and after the x-ray did not reveal any significant changes to sized ischemia. Patient complaint some atypical pain at peak exercise unassociated with any EKG changes. Echo data: Baseline echo images show normal wall motion and thickening. Exercise echo images showed augmentation of the wall motion and thickening in all segments. Final impression: #1. Negative stress test #2. Negative stress echo.
--- NOTE | 2019-06-17 09:13 | ECHOS ---
Stress Test Results/Findings: Exam Performed: stress echo exercise Exam Date: 06/16/19 Reason for Exam: CP Height: 6 ft 2 in Weight: 81.647 kg Protocol: STRESS ECHO Stage: 5 Duration of Exercise: 12:16 Resting Heart Rate: 58 Resting Blood Pressure: 95/58 Maximum Achieved Heart Rate: 140 Maximum Achieved Blood Pressure: 161/78 85% PMHR: 143 100% PMHR: 168 METS: 12.5 Technologist Comment: Stress Test Results/Findings: This is a 53-year-old gentleman with history of of hypertension, hypercholesteremia smoking history with previous stent placement being evaluated for symptoms of chest pain and shortness of breath. Stress data:. Baseline EKG showed a sinus rhythm with normal AL interval, QRS duration. Blood pressure at rest is 95/58% of 58. Patient walked on the Syd protocol for 12 minutes achieving a maximum heart rate of 141 with a blood pressure about 160/78. EKGs taken during and after the x-ray did not reveal any significant changes to sized ischemia. Patient complaint some atypical pain at peak exercise unassociated with any EKG changes. Echo data: Baseline echo images show normal wall motion and thickening. Exercise echo images showed augmentation of the wall motion and thickening in all segments. Final impression: #1. Negative stress test #2. Negative stress echo. MARINA
--- NOTE | 2019-06-23 23:15 | P.DS ---
Providers Date of admission: 06/15/19 14:37 Expected date of discharge: 06/16/19 Attending physician: Brain Cohn Consults: 06/15/19 14:37 Consult Physician Urgent Consulting Provider: [facility] Consult Reason/Comments: acute chest pain, hx ascad Do you want consulting provider notified?: Yes Primary care physician: Stated None Hospital Course: Discharge diagnosis Atypical chest pain. Ruled out ACS. Negative stress test Slightly elevated liver enzymes could be secondary to statin. Coronary artery disease with history of stent 2 placement in October 2089 History of [place] Right shoulder pain and chronic back pain Depression Nicotine addiction ongoing History of cocaine Heroin Abuse DVT prophylaxis. Hospital course Patient is a 53-year-old male with a known history of coronary artery system status post stent 2 placement in October 2018 came to ER with complaints of chest pain. Patient has been having chest pain mainly left lower breast margin without any radiation. Patient has been having these symptoms of sharp pain for the past 4 days. Denied any increase of pain with deep breathing. Patient says that sometimes pain is associated with dizziness when standing up. Patient says that he has also been having exertional short of breath. Patient felt very lethargic during the weekend and could not do anything. Patient had this pain again this morning and did take nitroglycerin which seemed to improve his symptoms. No diaphoresis. Patient is a ER for further evaluation. Patient says that sometimes pain is the midsternal area and going down to his right side of the abdomen. Denied any relief of pain with food intake. Denied any leg swelling. No orthopnea no PND. No fever no chills. No cough or sputum production. No wheezing. Patient continues to smoke daily. EKG showed sinus bradycardia with first degree AV block. Chest x-ray showed no acute cardio pulmonary process. AST and ALT 157 and 218 Troponin 2 negative Patient was continued on telemetry monitoring. Troponins negative. EKG showed normal sinus rhythm. Continue with aspirin Plavix and beta blockers. US abdomen due to slightly elevated liver enzymes. Showed splenomegaly. Patient was seen by cardiology. Continue the home medications and follow closely. Patient underwent stress test is negative. PHYSICAL EXAMINATION: Patient is lying in the bed comfortably, no acute distress, awake alert and oriented.. HEENT: Normocephalic. Neck is supple. Pupils reactive. Nostrils clear. Oral cavity is moist. Ears reveal no drainage. Neck reveals no JVD, carotid bruits, or thyromegaly. CHEST EXAMINATION: Trachea is central. Symmetrical expansion. Lung garcia clear to auscultation and percussion. CARDIAC: Normal S1, S2 with no gallops. No murmurs ABDOMEN: Soft. Bowel sounds normal. No organomegaly. No abdominal bruits. Extremities: reveal no edema. No clubbing or cyanosis Neurologically awake, alert, oriented x3 with well-coordinated movements. No focal deficits noted Skin: No rash or skin lesions. Psychiatric: Coperative. Nonsuicidal Musculoskeletal: No joint swelling or deformity. Normal range of motion. Vital Signs Temp Pulse Pulse Resp BP BP BP 06/16/19 07:10 97.5 F L 54 L 18 97/58 06/16/19 04:00 97.6 F 54 L 18 106/67 06/16/19 03:10 18 06/16/19 00:00 18 06/15/19 23:43 97.7 F 51 L 18 139/68 06/15/19 20:00 18 06/15/19 19:31 98.2 F 54 L 18 125/66 06/15/19 16:00 55 L 14 06/15/19 15:41 97.6 F 55 L 14 127/83 06/15/19 15:05 49 L 18 115/77 06/15/19 12:08 97.6 F 56 L 16 128/83 Pulse Ox 06/16/19 07:10 97 06/16/19 04:00 97 06/16/19 03:10 06/16/19 00:00 06/15/19 23:43 96 06/15/19 20:00 06/15/19 19:31 97 06/15/19 16:00 06/15/19 15:41 98 06/15/19 15:05 99 06/15/19 12:08 99 Patient Condition at Discharge: Stable Plan - Discharge Summary Discharge Rx Participant: No New Discharge Prescriptions: New Aspirin 81 mg PO DAILY #30 tab Metoprolol Tartrate [Lopressor] 12.5 mg PO BID #60 tab Continue Atorvastatin [Lipitor] 80 mg PO HS #30 tab Clopidogrel [Plavix] 75 mg PO DAILY #30 tab Lisinopril [Zestril] 2.5 mg PO DAILY #30 tab Discontinued Aspirin 325 mg PO DAILY #30 tab Metoprolol Tartrate [Lopressor] 25 mg PO BID #60 tab Discharge Medication List Atorvastatin [Lipitor] 80 mg PO HS #30 tab 10/22/18 [Rx] Clopidogrel [Plavix] 75 mg PO DAILY #30 tab 10/22/18 [Rx] Lisinopril [Zestril] 2.5 mg PO DAILY #30 tab 10/22/18 [Rx] Aspirin 81 mg PO DAILY #30 tab 06/16/19 [Rx] Metoprolol Tartrate [Lopressor] 12.5 mg PO BID #60 tab 06/16/19 [Rx] Follow up Appointment(s)/Referral(s): Mike Langford MD [STAFF PHYSICIAN] - 2 Weeks None,Stated [Primary Care Provider] - 1-2 days Discharge Disposition: HOME SELF-CARE
== END 2019-06-16 17:25 | disposition home or self-care (01) ==
LOC: EC 12:07 → 1SOBS 14:37
PROVIDERS: ADMIT Hospitalist; ATTEND Hospitalist
DX: R07.89 Other chest pain (principal); I25.10 Atherosclerotic heart disease of native coronary artery without angina pectoris; I10 Essential (primary) hypertension; E78.5 Hyperlipidemia, unspecified; B19.20 Unspecified viral hepatitis C without hepatic coma; F32.9 Major depressive disorder, single episode, unspecified; F17.200 Nicotine dependence, unspecified, uncomplicated; R74.0 Nonspecific elevation of levels of transaminase and lactic acid dehydrogenase [LDH]; R42 Dizziness and giddiness; R11.0 Nausea; R06.02 Shortness of breath; R53.83 Other fatigue; I44.0 Atrioventricular block, first degree; R00.1 Bradycardia, unspecified; F17.210 Nicotine dependence, cigarettes, uncomplicated; G89.29 Other chronic pain; M25.511 Pain in right shoulder; M54.9 Dorsalgia, unspecified; Z79.82 Long term (current) use of aspirin; Z79.02 Long term (current) use of antithrombotics/antiplatelets; Z79.899 Other long term (current) drug therapy; Z88.5 Allergy status to narcotic agent; I25.2 Old myocardial infarction; Z87.898 Personal history of other specified conditions; Z95.5 Presence of coronary angioplasty implant and graft; Z82.49 Family history of ischemic heart disease and other diseases of the circulatory system; Z83.6 Family history of other diseases of the respiratory system
CPT/HCPCS: 93005 ×2; 99285; 36415; 93306; 93351; 83880; 80053; 83690; 83735; 84484 ×2; 85025; 85610; 85730; 71046; 76700; G0378 ×2

== ENCOUNTER 2019-10-15 15:59 | Emergency (ER) | payer OTHER ==
[2019-10-15 16:04] VITALS: TEMP 97.6
--- NOTE | 2019-10-15 16:40 | ED ---
General Adult HPI - General Chief complaint: Nausea/Vomiting/Diarrhea Stated complaint: Blood in ears Time Seen by Provider: 10/15/19 16:05 Source: patient, RN notes reviewed, old records reviewed Mode of arrival: ambulatory Limitations: no limitations - History of Present Illness Initial comments: 54-year-old male presenting for evaluation of nausea vomiting and bilateral bleeding from his years. He had 3 episodes of vomiting this morning preceded by nausea. No abdominal pain. Just after the episodes of vomiting he noted blood coming from his right ear followed by his left ear. Denies headache. Denies nasal bleeding. He is on aspirin and Plavix with history of CAD. Denies current chest pain, denies abdominal pain. No diarrhea. No fever. - Related Data Previous Rx's Medication Instructions Recorded Atorvastatin [Lipitor] 80 mg PO HS #30 tab 10/22/18 Clopidogrel [Plavix] 75 mg PO DAILY #30 tab 10/22/18 Lisinopril [Zestril] 2.5 mg PO DAILY #30 tab 10/22/18 Aspirin 81 mg PO DAILY #30 tab 06/16/19 Metoprolol Tartrate [Lopressor] 12.5 mg PO BID #60 tab 06/16/19 Ofloxacin 0.3% Otic Soln [Floxin 5 drops BOTH EARS BID #10 ml 10/15/19 0.3% Otic Soln] Allergies Allergy/AdvReac Type Severity Reaction Status Date / Time codeine AdvReac Nausea & Verified 10/15/19 16:03 Vomiting/ITCH Review of Systems ROS Statement: Those systems with pertinent positive or pertinent negative responses have been documented in the HPI. ROS Other: All systems not noted in ROS Statement are negative. Past Medical History Past Medical History: Myocardial Infarction ([place]) Additional Past Medical History / Comment(s): right shoulder pain, back pain Last Myocardial Infarction Date:: 2019 History of Any Multi-Drug Resistant Organisms: None Reported Past Surgical History: Heart Catheterization With Stent, Orthopedic Surgery Additional Past Surgical History / Comment(s): left leg, left knee, stent x2 Past Anesthesia/Blood Transfusion Reactions: No Reported Reaction Date of Last Stent Placement:: 10/16/18 Past Psychological History: Depression Smoking Status: Current every day smoker Past Alcohol Use History: Occasional Past Drug Use History: Cocaine, Heroin - Past Family History Father Family Medical History: Coronary Artery Disease (CAD), Respiratory Disorder Additional Family Medical History / Comment(s): Father at the age of 75 yrs. Mother Family Medical History: No Reported History Additional Family Medical History / Comment(s): Mother is healthy General Exam Limitations: no limitations General appearance: alert, in no apparent distress Head exam: Present: atraumatic, normocephalic Eye exam: Present: normal appearance, PERRL ENT exam: Absent: TM's normal bilaterally (Blood in both external auditory canals, visualized portions of the tympanic membranes are within normal limits.) Neck exam: Present: normal inspection. Absent: tenderness, meningismus Respiratory exam: Present: normal lung sounds bilaterally. Absent: respiratory distress, wheezes Cardiovascular Exam: Present: regular rate, normal rhythm GI/Abdominal exam: Present: soft. Absent: distended, tenderness, guarding, rebound Extremities exam: Present: normal inspection, normal capillary refill. Absent: pedal edema, calf tenderness Neurological exam: Present: alert, oriented X3, CN II-XII intact. Absent: motor sensory deficit Psychiatric exam: Present: normal affect, normal mood Skin exam: Present: warm, dry, intact. Absent: cyanosis, diaphoretic Course Vital Signs 10/15/19 16:00 Temperature 97.6 F Pulse Rate 68 Respiratory 16 Rate Blood Pressure 100/65 O2 Sat by Pulse 98 Oximetry EKG Findings - EKG Comments: EKG Findings:: EKG: Sinus rhythm with first-degree AV block, T-wave inversion in lead 3, similar compared to previous. Rate of 68, NJ interval 236, QRS duration 96, QTC [address] segment elevation. Medical Decision Making - Medical Decision Making 54-year-old male presenting with 3 episodes of vomiting followed by bleeding from both years. He has dried blood in bilateral external auditory canals no active bleeding, the tympanic membranes are intact bilaterally. He has normal hearing. No associated symptoms, nausea and vomiting is resolved with no further episodes while in the emergency department, no abdominal pain. He has a hemoglobin 12.7, INR 1.2 otherwise normal laboratory studies. He does have history of CAD, with the vomiting episodes that performed both EKG, troponin, c hest x-ray which is unremarkable. He is asymptomatic and eager for discharge. I discussed case with ENT Dr. Romano, recommends all flexes and drops and outpatient follow-up as needed. - Lab Data Result diagrams: 10/15/19 16:55 10/15/19 16:55 Lab Results 10/15/19 10/15/19 10/15/19 Range/Units 16:55 16:55 16:55 WBC 7.0 (3.8-10.6) k/uL RBC 4.51 (4.30-5.90) m/uL Hgb 12.7 L (13.0-17.5) gm/dL Hct 40.0 (39.0-53.0) % MCV 88.6 (80.0-100.0) fL MCH 28.1 (25.0-35.0) pg MCHC 31.7 (31.0-37.0) g/dL RDW 14.3 (11.5-15.5) % Plt Count 187 (150-450) k/uL Neutrophils % 70 % Lymphocytes % 20 % Monocytes % 7 % Eosinophils % 1 % Basophils % 0 % Neutrophils # 4.9 (1.3-7.7) k/uL Lymphocytes # 1.4 (1.0-4.8) k/uL Monocytes # 0.5 (0-1.0) k/uL Eosinophils # 0.1 (0-0.7) k/uL Basophils # 0.0 (0-0.2) k/uL PT (9.0-12.0) sec INR (<1.2) APTT (22.0-30.0) sec Sodium 136 L (137-145) mmol/L Potassium 4.2 (3.5-5.1) mmol/L Chloride 97 L (98-107) mmol/L Carbon Dioxide 31 H (22-30) mmol/L Anion Gap 8 mmol/L BUN 20 (9-20) mg/dL Creatinine 1.02 (0.66-1.25) mg/dL Est GFR (CKD-EPI)AfAm >90 (>60 ml/min/1.73 sqM) Est GFR (CKD-EPI)NonAf 84 (>60 ml/min/1.73 sqM) Glucose 112 H (74-99) mg/dL Plasma Lactic Acid Speedy 1.1 (0.7-2.0) mmol/L Calcium 9.1 (8.4-10.2) mg/dL Magnesium 2.0 (1.6-2.3) mg/dL Total Bilirubin 0.9 (0.2-1.3) mg/dL AST 64 H (17-59) U/L ALT 78 H (4-49) U/L Alkaline Phosphatase 61 (38-126) U/L Troponin I (0.000-0.034) ng/mL Total Protein 8.0 (6.3-8.2) g/dL Albumin 4.4 (3.5-5.0) g/dL Urine Color Urine Appearance (Clear) Urine pH (5.0-8.0) Ur Specific [place] (1.001-1.035) Urine Protein (Negative) Urine Glucose (UA) (Negative) Urine Ketones (Negative) Urine Blood (Negative) Urine Nitrite (Negative) Urine Bilirubin (Negative) Urine Urobilinogen (<2.0) mg/dL Ur Leukocyte Esterase (Negative) 10/15/19 10/15/19 10/15/19 Range/Units 16:55 16:55 16:55 WBC (3.8-10.6) k/uL RBC (4.30-5.90) m/uL Hgb (13.0-17.5) gm/dL Hct (39.0-53.0) % MCV (80.0-100.0) fL MCH (25.0-35.0) pg MCHC (31.0-37.0) g/dL RDW (11.5-15.5) % Plt Count (150-450) k/uL Neutrophils % % Lymphocytes % % Monocytes % % Eosinophils % % Basophils % % Neutrophils # (1.3-7.7) k/uL Lymphocytes # (1.0-4.8) k/uL Monocytes # (0-1.0) k/uL Eosinophils # (0-0.7) k/uL Basophils # (0-0.2) k/uL PT 11.8 (9.0-12.0) sec INR 1.2 H (<1.2) APTT 26.9 (22.0-30.0) sec Sodium (137-145) mmol/L Potassium (3.5-5.1) mmol/L Chloride (98-107) mmol/L Carbon Dioxide (22-30) mmol/L Anion Gap mmol/L BUN (9-20) mg/dL Creatinine (0.66-1.25) mg/dL Est GFR (CKD-EPI)AfAm (>60 ml/min/1.73 sqM) Est GFR (CKD-EPI)NonAf (>60 ml/min/1.73 sqM) Glucose (74-99) mg/dL Plasma Lactic Acid Speedy (0.7-2.0) mmol/L Calcium (8.4-10.2) mg/dL Magnesium (1.6-2.3) mg/dL Total Bilirubin (0.2-1.3) mg/dL AST (17-59) U/L ALT (4-49) U/L Alkaline Phosphatase (38-126) U/L Troponin I <0.012 (0.000-0.034) ng/mL Total Protein (6.3-8.2) g/dL Albumin (3.5-5.0) g/dL Urine Color Yellow Urine Appearance Clear (Clear) Urine pH 6.0 (5.0-8.0) Ur Specific [place] 1.016 (1.001-1.035) Urine Protein Trace H (Negative) Urine Glucose (UA) Negative (Negative) Urine Ketones Negative (Negative) Urine Blood Negative (Negative) Urine Nitrite Negative (Negative) Urine Bilirubin Negative (Negative) Urine Urobilinogen 2.0 (<2.0) mg/dL Ur Leukocyte Esterase Negative (Negative) Disposition Clinical Impression: Nausea & vomiting Disposition: HOME SELF-CARE Instructions (If sedation given, give patient instructions): Acute Nausea and Vomiting (ED) Prescriptions: Ofloxacin 0.3% Otic Soln [Floxin 0.3% Otic Soln] 5 drops BOTH EARS BID #10 ml Is patient prescribed a controlled substance at d/c from ED?: No Referrals: None,Stated [Primary Care Provider] - 1-2 days Nikolai Mcdonald DO [Doctor of Osteopathic Medicine] - 1-2 days Time of Disposition: 18:12
[2019-10-15 17:18] LABS: Basophils % (A) 0 %; Eosinophils # (A) 0.1 k/uL (0-0.7); Eosinophils % (A) 1 %; HGB 12.7 gm/dL (13.0-17.5); Lymphocytes # (A) 1.4 k/uL (1.0-4.8); Lymphocytes % (A) 20 %; MCH 28.1 pg (25.0-35.0); MCHC 31.7 g/dL (31.0-37.0); MCV 88.6 fL (80.0-100.0); Mean Platelet Volume 8.2; Monocytes # (A) 0.5 k/uL (0-1.0); Monocytes % (A) 7 %; Neutrophils # (A) 4.9 k/uL (1.3-7.7); Neutrophils % (A) 70 %; Platelet Count 187 k/uL (150-450); RBC 4.51 m/uL (4.30-5.90); RDW 14.3 % (11.5-15.5)
[2019-10-15 17:20] LABS: Appearance,Urine Clear (Clear); Bilirubin,Urine Negative (Negative); Blood,Urine Negative (Negative); Color,Urine Yellow; Glucose,Urine (UA) Negative (Negative); Ketones,Urine Negative (Negative); Leukocyte Esterase,Urine Negative (Negative); Nitrite,Urine Negative (Negative); Protein,Urine Trace (Negative); Specific Gravity,Urine 1.016 (1.001-1.035)
[2019-10-15 17:24] LABS: INR 1.2 (<1.2); Partial Thromboplastin Time 26.9 sec (22.0-30.0); Prothrombin Time 11.8 sec (9.0-12.0)
[2019-10-15 17:29] LABS: ALT 78 U/L (4-49); AST 64 U/L (17-59); African American GFR (CKD) >90 (>60 ml/min/1.73 sqM); Albumin 4.4 g/dL (3.5-5.0); Alkaline Phosphatase 61 U/L (38-126); Anion Gap 8 mmol/L; Blood Urea Nitrogen 20 mg/dL (9-20); Calcium 9.1 mg/dL (8.4-10.2); Carbon Dioxide 31 mmol/L (22-30); Chloride 97 mmol/L (98-107); Glucose 112 mg/dL (74-99); Non-African American GFR(CKD) 84 (>60 ml/min/1.73 sqM); Potassium 4.2 mmol/L (3.5-5.1); Sodium 136 mmol/L (137-145); Total Bilirubin 0.9 mg/dL (0.2-1.3)
--- NOTE | 2019-10-15 17:45 | XR ---
EXAMINATION: XR chest 2V DATE AND TIME: 10/15/2019 5:15 PM CLINICAL INDICATION: PHH; Weakness with nausea vomiting diarrhea TECHNIQUE: PA and lateral views COMPARISON: 06/15/2019 FINDINGS: The lungs are clear. The pleural spaces are negative. The cardiac silhouette is not enlarged. The remainder of the mediastinal silhouette is unremarkable. The skeletal structures and soft tissues are negative for acute findings. IMPRESSION: NO ACUTE PROCESS.
[2019-10-15 18:21] VITALS: BP 139/83; PULSE 78; RESP 18
== END 2019-10-15 18:18 | disposition home or self-care (01) ==
LOC: EC 15:59
DX: R11.2 Nausea with vomiting, unspecified (principal); H92.23 Otorrhagia, bilateral; I25.10 Atherosclerotic heart disease of native coronary artery without angina pectoris; I25.2 Old myocardial infarction; F17.200 Nicotine dependence, unspecified, uncomplicated; Z88.5 Allergy status to narcotic agent; Z79.02 Long term (current) use of antithrombotics/antiplatelets; Z79.82 Long term (current) use of aspirin; Z95.5 Presence of coronary angioplasty implant and graft
CPT/HCPCS: 36415; 71046; 80053; 81003; 83605; 83735; 84484; 85025; 85610; 85730; 93005; 99284

== ENCOUNTER 2021-01-19 18:44 | Inpatient (IN) | payer OTHER ==
[2021-01-19] MEDS ORDERED: ASPIRIN 81 MG PO STA (19:12)
[2021-01-19] MEDS ORDERED: NITROGLYCERIN OINT 1 INCH/GM PACKET TOPICAL STA (19:12)
[2021-01-19 19:31] LABS: Basophils # (A) 0.1 k/uL (0-0.2); Basophils % (A) 1 %; Eosinophils # (A) 0.2 k/uL (0-0.7); Eosinophils % (A) 3 %; HCT 41.2 % (39.0-53.0); HGB 13.4 gm/dL (13.0-17.5); Lymphocytes # (A) 3.7 k/uL (1.0-4.8); Lymphocytes % (A) 41 %; MCH 26.8 pg (25.0-35.0); MCHC 32.5 g/dL (31.0-37.0); MCV 82.5 fL (80.0-100.0); Mean Platelet Volume 7.6; Monocytes # (A) 0.5 k/uL (0-1.0); Monocytes % (A) 6 %; Neutrophils # (A) 4.4 k/uL (1.3-7.7); Neutrophils % (A) 49 %; Platelet Count 276 k/uL (150-450); RBC 4.99 m/uL (4.30-5.90); RDW 14.7 % (11.5-15.5)
--- NOTE | 2021-01-19 19:32 | XR ---
EXAMINATION TYPE: XR chest 2V DATE OF EXAM: 01/19/2021 COMPARISON: 10/15/19 HISTORY: Shortness of breath TECHNIQUE: Frontal and lateral views of the chest are obtained. FINDINGS: Scattered senescent parenchymal changes noted. Hyperinflation compatible with COPD. No evidence for infiltrate. No evidence for atelectasis. Heart size is stable. Mediastinal structures are stable and grossly unremarkable. No evidence for hilar prominence. Degenerative changes dorsal spine. IMPRESSION: 1. No evidence for acute pulmonary disease.
[2021-01-19 19:41] LABS: ALT 27 U/L (4-49); AST 30 U/L (17-59); African American GFR (CKD) >90 (>60 ml/min/1.73 sqM); Albumin 4.3 g/dL (3.5-5.0); Alkaline Phosphatase 162 U/L (38-126); Anion Gap 11 mmol/L; Blood Urea Nitrogen 13 mg/dL (9-20); Calcium 9.4 mg/dL (8.4-10.2); Carbon Dioxide 21 mmol/L (22-30); Chloride 109 mmol/L (98-107); Creatine Kinase 53 U/L (55-170); Glucose 138 mg/dL (74-99); Lipase 205 U/L (23-300); Magnesium 1.6 mg/dL (1.6-2.3); Non-African American GFR(CKD) >90 (>60 ml/min/1.73 sqM); Potassium 4.2 mmol/L (3.5-5.1); Sodium 141 mmol/L (137-145); Total Bilirubin 0.3 mg/dL (0.2-1.3); Total Protein 7.7 g/dL (6.3-8.2)
[2021-01-19 19:50] LABS: D-Dimer 0.19 mg/L FEU (<0.60); INR 1.1 (<1.2); Partial Thromboplastin Time 23.2 sec (22.0-30.0); Prothrombin Time 11.4 sec (9.0-12.0)
--- NOTE | 2021-01-19 20:08 | ED ---
Chest Pain HPI - General Chief Complaint: Chest Pain Stated Complaint: Chest pain Time Seen by Provider: 01/19/21 18:51 Source: patient, RN notes reviewed Mode of arrival: wheelchair Limitations: no limitations - History of Present Illness Initial Comments: This is a 55-year-old male with a history of MS in the past with 2 stents were done 2018 who presents complains the onset of chest pain today. The pain was in the left side of his chest was crampy and achy nature H/10 with radiation to his left arm to the elbow. He does have some symptoms over the past week or so of intermittent chest discomfort. He has very minimal discomfort at this time no cough no phlegm production no fevers chills or sweats patient does admit he is a smoker and still smokes. No other current complaints or modifying factors MD Complaint: chest pain - Related Data Previous Rx's Medication Instructions Recorded Atorvastatin [Lipitor] 80 mg PO HS #30 tab 10/22/18 Clopidogrel [Plavix] 75 mg PO DAILY #30 tab 10/22/18 lisinopriL [Zestril] 2.5 mg PO DAILY #30 tab 10/22/18 Aspirin 81 mg PO DAILY #30 tab 06/16/19 Metoprolol Tartrate [Lopressor] 12.5 mg PO BID #60 tab 06/16/19 Ofloxacin 0.3% Otic Soln [Floxin 5 drops BOTH EARS BID #10 ml 10/15/19 0.3% Otic Soln] Allergies Allergy/AdvReac Type Severity Reaction Status Date / Time codeine AdvReac Nausea & Verified 01/19/21 18:46 Vomiting/ITCH Review of Systems ROS Statement: Those systems with pertinent positive or pertinent negative responses have been documented in the HPI. ROS Other: All systems not noted in ROS Statement are negative. EKG Findings - EKG Results: EKG: interpreted by ERMD, WNL, sinus rhythm, normal axis, normal QRS, normal ST/T, no acute changes (Sinus rhythm 87. Interval 182 QRS 84 QT since QTC 366/[address]-T wave changes) Past Medical History Past Medical History: Myocardial Infarction ([place]) Additional Past Medical History / Comment(s): right shoulder pain, back pain Last Myocardial Infarction Date:: 2018 History of Any Multi-Drug Resistant Organisms: None Reported Past Surgical History: Heart Catheterization With Stent, Orthopedic Surgery Additional Past Surgical History / Comment(s): left leg, left knee, stent x2 Past Anesthesia/Blood Transfusion Reactions: No Reported Reaction Date of Last Stent Placement:: 10/16/18 Past Psychological History: Depression Smoking Status: Current every day smoker Past Alcohol Use History: None Reported Past Drug Use History: Cocaine, Heroin, Methamphetamine - Past Family History Father Family Medical History: Coronary Artery Disease (CAD), Respiratory Disorder Additional Family Medical History / Comment(s): Father at the age of 75 yrs. Mother Family Medical History: No Reported History Additional Family Medical History / Comment(s): Mother is healthy General Exam - General Exam Comments Initial Comments: This is a well-developed well-nourished awake alert oriented times 3 male Limitations: no limitations General appearance: alert, anxious Head exam: Present: atraumatic, normocephalic, normal inspection Eye exam: Present: normal appearance, PERRL, EOMI. Absent: scleral icterus, conjunctival injection, periorbital swelling ENT exam: Present: normal exam, mucous membranes moist Neck exam: Present: normal inspection, full ROM, other (No stridor JVD or bruits). Absent: tenderness, meningismus, lymphadenopathy Respiratory exam: Present: normal lung sounds bilaterally. Absent: respiratory distress, wheezes, rales, rhonchi, stridor Cardiovascular Exam: Present: regular rate, normal rhythm, normal heart sounds. Absent: systolic murmur, diastolic murmur, rubs, gallop, clicks GI/Abdominal exam: Present: soft, normal bowel sounds. Absent: distended, tenderness, guarding, rebound, rigid, bruit, pulsatile mass Extremities exam: Present: normal inspection, full ROM, normal capillary refill. Absent: tenderness, pedal edema, joint swelling, calf tenderness Back exam: Present: normal inspection Neurological exam: Present: alert, oriented X3, CN II-XII intact Psychiatric exam: Present: normal affect, normal mood Skin exam: Present: warm, dry, intact, normal color. Absent: rash Course Vital Signs 01/19/21 18:46 Temperature 97.8 F Pulse Rate 99 Respiratory 20 Rate Blood Pressure 125/85 O2 Sat by Pulse 99 Oximetry - Reevaluation(s) Reevaluation #1: 01/19/21 20:27 Reevaluation the patient he still has twinges of discomfort but currently no pain Chest Pain MDM - MDM Imaging reviewed no acute findings. I did discuss [employer] the patient the presentation consistent with unstable angina with respect to the pain quality quantity and distribution. After discussion with the patient is agreed to be admitted for evaluation by cardiology Dr. Howe who is his hoop coiler will be consulted. The case is discussed with Ivette Giraldo who is covering for Dr. Cohn's group. Critical Care Time Critical Care Time: Yes Total Critical Care Time: 32 Critical Care Time: Critical care time includes initial presentation with history physical the x- rays review of old charting was available reevaluation the patient discussed with the patient regarding findings discussion with the admitting service admission orders and documentation of the above Disposition Clinical Impression: Chest pain, Unstable angina pectoris, Smoker Disposition: ADMITTED IP TO THIS [facility] Condition: Stable Referrals: Tammy Pederson MD [Primary Care Provider] - 1-2 days
[2021-01-19] MEDS ORDERED: NITROGLYCERIN SL TABS 0.4 MG TAB SUBLINGUAL PRN (20:32)
[2021-01-19] MEDS ORDERED: HEPARIN SODIUM 1,000 UN/ML (10ML VL) IV ONE (20:32)
[2021-01-19] MEDS ORDERED: NICOTINE 21MG/24HR PATCH TRANSDERM STA (20:36)
[2021-01-19] MEDS: ATORVASTATIN 80 MG TAB PO SCH (20:57)
[2021-01-19] MEDS: METOPROLOL TARTRATE 12.5 MG TAB PO SCH (21:02)
[2021-01-19] MEDS: HEPARIN SOD,PORK IN 0.45% NACL 25,000 UNIT in 0.45% NACL 1 250ML.BAG IV SCH (21:16)
[2021-01-20] MEDS: NITROGLYCERIN OINT 1 INCH/GM PACKET TOPICAL SCH ×4 (00:53→16:25)
[2021-01-20] MEDS: FAMOTIDINE 20 MG/2 ML VIAL IV SCH ×2 (07:50→19:28)
[2021-01-20] MEDS: METOPROLOL TARTRATE 12.5 MG TAB PO SCH ×2 (07:51→19:28)
[2021-01-20] MEDS: ASPIRIN 325 MG TAB PO SCH (07:51)
[2021-01-20] MEDS ORDERED: ALPRAZolam 0.25 MG TAB PO PRN (08:36)
[2021-01-20] MEDS ORDERED: SODIUM CHLORIDE 0.9% 1,000 ML in EMPTY BAG 1 BAG IV ONE (08:36)
[2021-01-20] MEDS ORDERED: ALPRAZolam 0.5 MG TAB PO PRN (08:36)
[2021-01-20] MEDS ORDERED: CLOPIDOGREL 75 MG TAB PO SCH (09:00)
[2021-01-20 09:31] LABS: Chol/HDL Ratio 2.87; LDL Cholesterol,Calculated 55.8 mg/dL (0.0-131.0); VLDL Calculation 17.2 mg/dL (5.00-40.00)
--- NOTE | 2021-01-20 09:33 | P.CRDCN ---
History of Present Illness History of present illness: HISTORY OF PRESENTING ILLNESS This is a pleasant 55-year-old male past medical history significant for coronary artery disease status post PCI of the LAD and left circumflex in 10/2018, hypertension, dyslipidemia, chronic nicotine dependence (currently smokes 1 pack per day). He follows in the office with Dr. Langford. We have been asked to see in consultation for chest pain. Patient states over the past week has been feeling weak, fatigued. Yesterday he started having increased lightheadedness, dizziness felt that he may black out. He started to have left sided chest pain describes it as "knawing". Pain 04/11, was non-radiating. He called [facility], made an appointment with Dr. Langford for this coming Saturday. However he continued to have worsening left-sided chest pain, increased with activity. He had associated dyspnea and fatigue. He was diaphoretic but h e also states it was hot yesterday outside and that could've been contributing to his diaphoresis. He does state that this pain was different from his [place]. His pain worsens with a deep breath. It is resolved with resting. He denies symptoms of orthopnea or PND. No leg edema. Current home cardiac medications include lisinopril 2.5 mg daily, metoprolol titrate 25 mg twice a day, Plavix 75 mg daily, atorvastatin 80 mg daily. DIAGNOSTICS First EKG on arrival reveals sinus rhythm, heart rate 87, no significant STT wave abnormalities, similar to Prior EKG. EKG this morning at 0200 revealed sinus rhythm, heart rate 68, new T wave inversions in anterior leads Last Cardiac Catheterization 10/2018 revealed an occluded left circumflex, which was stented. Severe disease involving the mid LAD which was stented, moderate to severe disease involving the RCA. Most recent echocardiogram 06/2019 left ventricular systolic function was normal with an EF between 55-60%, LA severely dilated, RV is mildly to severely enlarged, mild mitral regurgitation, mild tricuspid regurgitation Telemetry tracings indicate sinus mechanism heart rate in the 60s. Chest xray no acute cardiopulmonary process Laboratory reviewed, troponins negative 3, d-dimer negative, pro-BNP 358, COVID-19 negative, CBC unremarkable, serum creatinine 0.77, sodium 141, potassium 4.2, magnesium 1.6. REVIEW OF SYSTEMS At the time of my exam: CONSTITUTIONAL: +diaphoresis Denies fever or chills. CARDIOVASCULAR: Positive, +chest pain +shortness of breath, Deniesorthopnea, PND or palpitations. RESPIRATORY: Denies cough. GASTROINTESTINAL: Denies abdominal pain, diarrhea, constipation, nausea or vomiting. MUSCULOSKELETAL: Denies myalgias. NEUROLOGIC: Denies numbness, tingling, headacbe or weakness. ENDOCRINE: +fatigue Denies fatigue, weight change, polydipsia or polyurina. GENITOURINARY: Denies burning, hematuria or urgency with micturation. HEMATOLOGIC: Denies history of anemia or bleeding. PHYSICAL EXAMINATION Blood pressure 153/78 heart rate 66 afebrile and maintaining oxygen saturation 100% on room air CONSTITUTIONAL: No apparent distress. HEENT: Head is normocephalic. Pupils are equal, round. Sclerae anicteric. Mucous membranes of the mouth are moist. No JVD. No carotid bruit. CHEST EXAMINATION: Lungs are clear to auscultation. No chest wall tenderness is noted on palpation or with deep breathing. HEART EXAMINATION: Regular rate and rhythm. S1, S2 heard. No murmurs, gallops or rub. ABDOMEN: Soft, nontender. Positive bowel sounds. EXTREMITIES: 2+ peripheral pulses, no lower extremity edema and no calf tenderness. SKIN: intact NEUROLOGIC EXAMINATION: Patient is awake, alert and oriented x3. ASSESSMENT Chest pain, concerning for unstable angina Coronary artery disease status post PCI of the LAD and left circumflex in 10/2018 Hypertension Dyslipidemia Chronic nicotine dependence (currently smokes 1 pack per day) PLAN Obtain 2D echocardiogram and doppler study to assess cardiac structure and function. Plan for cardiac catheterization with Dr. Langford today. Patient agreeable I have discussed the risks, benefits and alternative therapies for the above- mentioned procedure and for both sedation/analgesia as well as necessary blood product administration, if indicated, as they pertain to this patient. The patient has indicated understanding and acceptance of the risks and procedures discussed. Questions have been answered appropriately and he is agreeable to move forward with the above-stated procedure. Further recommendations based on clinical course Nurse Practitioner note has been reviewed, I agree with a documented findings and plan of care. Patient was seen and examined. Past Medical History Past Medical History: Myocardial Infarction ([place]) Additional Past Medical History / Comment(s): right shoulder pain, back pain Last Myocardial Infarction Date:: 2018 History of Any Multi-Drug Resistant Organisms: None Reported Past Surgical History: Heart Catheterization With Stent, Orthopedic Surgery Additional Past Surgical History / Comment(s): left leg, left knee, stent x2 Past Anesthesia/Blood Transfusion Reactions: No Reported Reaction Date of Last Stent Placement:: 10/16/18 Past Psychological History: Depression Additional Psychological History / Comment(s): Pt resides with his significant other. He uses no assistive device. He does not drive, he gets places by family, bus or cab. Smoking Status: Current every day smoker Past Alcohol Use History: None Reported Additional Past Alcohol Use History / Comment(s): Pt started smoking in 1980 and is a ppd smoker. Past Drug Use History: Cocaine, Heroin, Methamphetamine Additional Drug Use History / Comment(s): Pt states he last used cocaine, heroin yesterday, 10/16/18 - Past Family History Father Family Medical History: Coronary Artery Disease (CAD), Respiratory Disorder Additional Family Medical History / Comment(s): Father at the age of 75 yrs. Mother Family Medical History: No Reported History Additional Family Medical History / Comment(s): Mother is healthy Medications and Allergies Home Medications Medication Instructions Recorded Confirmed Type Clopidogrel [Plavix] 75 mg PO DAILY #30 tab 10/22/18 01/19/21 Rx lisinopriL [Zestril] 2.5 mg PO DAILY #30 tab 10/22/18 01/19/21 Rx Atorvastatin Calcium [Lipitor] 80 mg PO DAILY 01/19/21 01/19/21 History Metoprolol Tartrate [Lopressor] 25 mg PO BID 01/19/21 01/19/21 History Allergies Allergy/AdvReac Type Severity Reaction Status Date / Time codeine AdvReac Nausea & Verified 01/19/21 21:00 Vomiting/ITCH Physical Exam Vitals: Vital Signs Temp Pulse Pulse Resp BP BP Pulse Ox 01/20/21 02:00 97.9 F 67 16 123/68 99 01/19/21 22:15 98.0 F 60 17 137/81 99 01/19/21 21:27 68 16 129/87 98 01/19/21 18:46 97.8 F 99 20 125/85 99 Intake and Output 01/19/21 01/20/21 01/20/21 22:59 06:59 14:59 Other: # Voids 1 Weight 72.575 kg Results 01/19/21 19:14 01/19/21 19:14 Cardiac Enzymes 01/19/21 01/19/21 01/19/21 Range/Units 19:14 19:14 22:16 AST 30 (17-59) U/L Troponin I <0.012 <0.012 (0.000-0.034) ng/mL 01/20/21 Range/Units 01:23 AST (17-59) U/L Troponin I <0.012 (0.000-0.034) ng/mL Coagulation 01/19/21 Range/Units 19:14 PT 11.4 (9.0-12.0) sec APTT 23.2 (22.0-30.0) sec CBC 01/19/21 Range/Units 19:14 WBC 9.0 (3.8-10.6) k/uL RBC 4.99 (4.30-5.90) m/uL Hgb 13.4 (13.0-17.5) gm/dL Hct 41.2 (39.0-53.0) % Plt Count 276 (150-450) k/uL Comprehensive Metabolic Panel 01/19/21 Range/Units 19:14 Sodium 141 (137-145) mmol/L Potassium 4.2 (3.5-5.1) mmol/L Chloride 109 H (98-107) mmol/L Carbon Dioxide 21 L (22-30) mmol/L BUN 13 (9-20) mg/dL Creatinine 0.77 (0.66-1.25) mg/dL Glucose 138 H (74-99) mg/dL Calcium 9.4 (8.4-10.2) mg/dL AST 30 (17-59) U/L ALT 27 (4-49) U/L Alkaline Phosphatase 162 H (38-126) U/L Total Protein 7.7 (6.3-8.2) g/dL Albumin 4.3 (3.5-5.0) g/dL Current Medications Generic Name Dose Route Start Last Admin Trade Name Freq PRN Reason Stop Dose Admin Aspirin 325 mg 01/20/21 09:00 Aspirin 325 Mg Tab PO DAILY ANN Atorvastatin Calcium 80 mg 01/19/21 21:00 01/19/21 20:57 Atorvastatin 80 Mg Tab PO 80 mg HS ANN Administration Clopidogrel Bisulfate 75 mg 01/20/21 09:00 Clopidogrel 75 Mg Tab PO DAILY [facility] Famotidine 20 mg 01/20/21 09:00 Famotidine 20 Mg/2 Ml Vial IV Q12HR [facility] Heparin Sodium/Sodium Chloride 250 mls @ 8.709 mls/hr 01/19/21 20:45 01/19/21 21:16 25,000 unit/ Sodium Chloride IV 12 units/kg/hr .Q24H ANN 8.709 mls/hr Administration Protocol 12 UNITS/KG/HR Lisinopril 2.5 mg 01/20/21 09:00 Lisinopril 2.5 Mg Tab PO DAILY [facility] Metoprolol Tartrate 12.5 mg 01/19/21 21:00 01/19/21 21:02 Metoprolol Tartrate 12.5 Mg Tab PO 12.5 mg BID ANN Administration Nitroglycerin 0.4 mg 01/19/21 20:32 01/19/21 20:57 Nitroglycerin Sl Tabs 0.4 Mg Tab SUBLINGUAL 0.4 mg Q5M PRN Administration Chest Pain Nitroglycerin 1 inch 01/20/21 00:00 01/20/21 07:50 Nitroglycerin Oint 1 Inch/Gm Packet TOPICAL Not Given Q6HR ANN Intake and Output 01/19/21 01/20/21 01/20/21 22:59 06:59 14:59 Other: # Voids 1 Weight 72.575 kg 01/19/21 19:14 01/19/21 19:14
--- NOTE | 2021-01-20 10:00 | ECHOF ---
Referral Reason:Rule out heart disease MEASUREMENTS -------- HEIGHT: 157.5 cm WEIGHT: 72.6 kg BP: 123/68 RVIDd: 2.8 cm (< 3.3) IVSd: 1.0 cm (0.6 - 1.1) LVIDd: 4.4 cm (3.9 - 5.3) LVPWd: 1.4 cm (0.6 - 1.1) IVSs: 1.6 cm LVIDs: 2.7 cm LVPWs: 1.9 cm LAESV Index (A-L): 26.74 ml/m Ao Diam: 3.1 cm (2.0 - 3.7) AV Cusp: 1.9 cm (1.5 - 2.6) LA Diam: 2.4 cm (2.7 - 3.8) MV EXCURSION: 24.989 mm (> 18.000) MV EF SLOPE: 111 mm/s (70 - 150) EPSS: 0.9 cm MV E All: 0.48 m/s MV DecT: 313 ms MV A All: 0.46 m/s MV E/A Ratio: 1.02 AR PHT: 267 ms RAP: 5.00 mmHg RVSP: 28.81 mmHg FINDINGS -------- This was a technically good study. The left ventricular size is normal. There is mild concentric left ventricular hypertrophy. Overa ll left ventricular systolic function is mildly impaired with, an EF between 45 - 50 %. The diastol ic filling pattern is normal for the age of the patient 7.41. Basal inferior LV wall motion is hypo kinetic. Mid inferior LV wall motion is hypokinetic. Apical inferior LV wall motion is hypokine tic. The right ventricle is normal in size. The left atrial size is normal. Normal LA size by volume 22+/-6 ml/m2. The right atrial size is normal. The aortic valve is trileaflet and appears structurally normal. Trace amount of aortic regurgitatio n. The mitral valve is normal. The mitral valve leaflets are mildly thickened. There is trace mitral regurgitation. The tricuspid valve appears structurally normal. Trace tricuspid regurgitation present. Right jeri tricular systolic pressure is normal at < 35 mmHg. There is no pulmonic regurgitation present. The aortic root size is normal. Normal inferior vena cava with normal inspiratory collapse consistent with estimated right atrial pre ssure of 5 mmHg. There is no pericardial effusion. CONCLUSIONS -------- 1. The left ventricular size is normal. 2. There is mild concentric left ventricular hypertrophy. 3. Overall left ventricular systolic function is mildly impaired with, an EF between 45 - 50 %. 4. The diastolic filling pattern is normal for the age of the patient 7.41 5. Basal inferior LV wall motion is hypokinetic. 6. Mid inferior LV wall motion is hypokinetic. 7. Apical inferior LV wall motion is hypokinetic. 8. Trace amount of aortic regurgitation. 9. The mitral valve leaflets are mildly thickened. 10. Trace tricuspid regurgitation present. 11. There is no pericardial effusion. ADDICTIONS RECOVERY SPECIALIST: Melisa Braden RDCS
[2021-01-20] MEDS ORDERED: LIDOCAINE 1% INJ 10MG/ML (20 ML MDV) ONE (11:28)
[2021-01-20] MEDS ORDERED: VERAPAMIL 2.5 MG/ML 2 ML AMP ONE (11:28)
[2021-01-20] MEDS ORDERED: HEPARIN SODIUM 1,000 UN/ML (10ML VL) ONE (11:28)
--- NOTE | 2021-01-20 11:31 | P.EN ---
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 We will follow up
[2021-01-20] MEDS ORDERED: IV FLUID CONTINUATION 900 ML IV ONE (11:45)
[2021-01-20] MEDS ORDERED: MIDAZOLAM 2 MG/2 ML VIAL IVP ONE (11:52)
[2021-01-20] MEDS: LIDOCAINE 1% INJ 10MG/ML (20 ML MDV) SQ ONE ×2 (11:54→11:58)
[2021-01-20] MEDS ORDERED: HYDROmorphone 1 MG/ML 1 ML SYRINGE ONE (11:55)
[2021-01-20] MEDS ORDERED: HYDROmorphone 1 MG/ML 1 ML SYRINGE IVP ONE (11:56)
[2021-01-20] MEDS: NITROGLYCERIN 1000MCG/10ML SYRINGE INTRACORON ONE ×4 (11:58→12:27)
[2021-01-20] MEDS: HEPARIN SOD,PORK IN 0.45% NACL 25,000 UNIT in 0.45% NACL 1 250ML.BAG IV SCH (12:04)
[2021-01-20] MEDS ORDERED: BIVALIRUDIN BOLUS 250 MG/50 ML IV ONE (12:20)
[2021-01-20] MEDS ORDERED: BIVALIRUDIN 250 MG in SODIUM CHLORIDE 0.9% 50 ML IV ONE (12:22)
[2021-01-20] MEDS ORDERED: CLOPIDOGREL 75 MG TAB ONE (12:30)
[2021-01-20] MEDS ORDERED: MAG HYDROX/AL HYDROX/SIMETH 30 ML CUP PO PRN (12:37)
[2021-01-20] MEDS ORDERED: ZOLPIDEM 5 MG TAB PO PRN (12:37)
[2021-01-20] MEDS ORDERED: ATROPINE SULFATE 0.1 MG/ML 10ML SYRINGE IV PRN (12:37)
[2021-01-20] MEDS ORDERED: NITROGLYCERIN SL TABS 0.4 MG TAB SUBLINGUAL PRN (12:37)
[2021-01-20] MEDS ORDERED: RX INFO: IV CONTRAST WAS GIVEN 1 EACH MISC MISCELLANE PRN (12:37)
[2021-01-20] MEDS ORDERED: CLOPIDOGREL 75 MG TAB PO ONE (12:38)
[2021-01-20] MEDS ORDERED: IOPAMIDOL-370 125ML BTL INJ ONE (12:39)
[2021-01-20] MEDS ORDERED: SODIUM CHLORIDE 0.9% 1,000 ML IV SCH (12:45)
--- NOTE | 2021-01-20 13:51 | CC ---
CARDIAC CATHETERIZATION REPORT CARDIAC CATHETERIZATION AND PERCUTANEOUS CORONARY INTERVENTION: DATE OF SERVICE: January 20, 2021 PERFORMING PHYSICIAN: Mike Langford MD. PROCEDURE PERFORMED: 1. Selective right and left coronary angiogram. 2. Left heart catheterization. 3. Successful stenting of the mid right coronary artery using 3.25 x 18 mm Xience drug- eluting stent with an excellent angiographic results and reduction of stenosis from 70% to 0%. INDICATION: This is a very pleasant 55-year-old gentleman with coronary artery disease and prior stenting of the LCX and LAD who presented to the hospital with chest discomfort concerning for angina associated with EKG changes concerning for severe coronary artery disease. Because of that, a heart catheterization was advised. APPROACH: Right common femoral artery. COMPLICATION: None. LEVEL OF SEDATION: Moderate with sedation length of 37 minutes. PROCEDURE DESCRIPTION: After obtaining an informed consent, the patient was brought to the cardiac hoisting laborer. Initially we attempted accessing the right radial artery, but the patient did have a lot of pain and because of that, we decided to go from right groin approach. The right common femoral artery was cannulated using micropuncture technique and a micropuncture wire passed easily then I placed a 6-Montserratian sheath. I did selective left and right coronary angiogram with JL4 and JR4 catheters. Left heart catheterization was performed using the JR4 catheter which crossed the aortic valve then I did pullback across the valve. The procedure was completed without any complication. SELECTIVE CORONARY ANGIOGRAM: 1. The RCA is a large caliber vessel. It is a dominant vessel. The mid RCA has tubular lesion appeared to be in the range of 70%. The RCA distally appeared to be angiographically normal and bifurcates into PDA and PLV branches, both appeared to be angiographically normal. The left main appeared to have mild disease only in the range of 20% to 30%. It bifurcates into an LCX and LAD. 2. The LCX is a large caliber vessel. It is a codominant vessel. The proximal left circumflex has mild disease only. The mid left circumflex is angiographically normal and gives rise into a large OM branch which appeared to be angiographically normal and the circumflex distally is stented and the stent is patent. 3. The Left Anterior Descending Artery: The proximal LAD appeared to be angiographically normal. The mid LAD is stented and the stent is patent. The LAD in the mid and distal portion appeared to have a lesion in the range of 30% to 40%. This is by the bifurcation of a large diagonal branch which seems to be angiographically normal and the LAD distally becomes angiographically normal. HEMODYNAMICS: The LVEDP was about 10 to 12 mmHg without significant gradient across the aortic valve. PCI OF THE RCA.: Anticoagulation was achieved with Angiomax bolus and drip per protocol. Subsequently, I did engage the RCA using JR4 3.5 guide. I did wire the RCA using a run- through wire. After that I did PTCA ballooning using 2.5 x 15 mm balloon which was inflated under 14 atmospheres for 20 seconds before I deployed 3.25 x 18 mm Xience drug- eluting stent where the stent was positioned under fluoroscopy guidance and deployed under its nominal pressure. The following angiogram showed good angiographic results and the procedure was completed without any complication. CONCLUSION: 1. Patent stent in the left anterior descending artery. The mid LAD appeared to have a lesion in the range of 30% to 40%. 2. Patent stent in the distal left circumflex coronary artery. 3. Severe disease involving the mid with a tubular lesion. I did perform successful stenting of the mid RCA. 4. Normal LVEDP. POSTPROCEDURE MANAGEMENT: Medical treatment and follow up with the patient. MMODL / IJN: [id number] /
[2021-01-20 15:25] VITALS: BMI 20.5
[2021-01-20] MEDS: HYDROmorphone 0.5 MG/0.5 ML SYRINGE IVP PRN ×2 (16:43→20:01)
[2021-01-20] MEDS: ATORVASTATIN 80 MG TAB PO SCH (19:28)
[2021-01-21] MEDS: NITROGLYCERIN OINT 1 INCH/GM PACKET TOPICAL SCH ×3 (00:12→11:42)
[2021-01-21] MEDS: HYDROmorphone 0.5 MG/0.5 ML SYRINGE IVP PRN ×2 (00:59→09:10)
[2021-01-21 06:25] LABS: African American GFR (CKD) >90 (>60 ml/min/1.73 sqM); Anion Gap 5 mmol/L; Blood Urea Nitrogen 15 mg/dL (9-20); Calcium 8.7 mg/dL (8.4-10.2); Carbon Dioxide 28 mmol/L (22-30); Chloride 106 mmol/L (98-107); Glucose 115 mg/dL (74-99); Non-African American GFR(CKD) >90 (>60 ml/min/1.73 sqM); Potassium 4.4 mmol/L (3.5-5.1); Sodium 139 mmol/L (137-145)
[2021-01-21] MEDS ORDERED: HEPARIN SODIUM,PORCINE 2,500 UNIT in SODIUM CHLORIDE 0.9% 250 ML IRRIGATION PRN (07:00)
[2021-01-21] MEDS ORDERED: HEPARIN SODIUM,PORCINE 10,000 UNIT in SODIUM CHLORIDE 0.9% 1,000 ML IRRIGATION PRN (07:00)
[2021-01-21 08:22] VITALS: RESP 14
[2021-01-21] MEDS: ASPIRIN 325 MG TAB PO SCH (09:10)
[2021-01-21] MEDS: METOPROLOL TARTRATE 12.5 MG TAB PO SCH (09:10)
[2021-01-21] MEDS: FAMOTIDINE 20 MG/2 ML VIAL IV SCH (09:11)
--- NOTE | 2021-01-21 13:44 | P.PN ---
Subjective Progress Note Date: 01/21/21 This is a pleasant 55-year-old gentleman with a past medical history of CAD with prior stenting of the left circumflex and LAD who unfortunately has continued to smoke despite medical recommendations to quit. Presented to the hospital with chest discomfort concerning for angina with EKG changes. He was recommended to undergo cardiac catheterization which showed patent stent in the LAD, mid LAD lesion in the range of 30-40%, patent stent in the distal left circumflex and severe disease involving the mid RCA. He subsequently underwent successful stenting of that vessel. Overall this morning he is feeling well. Vital signs are stable. He is on aspirin, Lipitor, Plavix, lisinopril and metoprolol. Renal function is stable. Objective - Vital Signs Vital signs: Vital Signs Temp 97.5 F L 01/21/21 08:22 Pulse 61 01/21/21 08:22 Resp 14 01/21/21 08:22 BP 120/71 01/21/21 08:22 Pulse Ox 99 01/21/21 08:22 Intake & Output 01/20/21 01/21/21 01/21/21 18:59 06:59 18:59 Intake Total 207 600 Output Total 750 600 Balance -543 0 Weight 72.575 kg Intake: IV 117 Intake, IV Titration 600 Amount Sodium Chloride 0.9% 1, 600 000 ml @ 75 mls/hr IV . [id number] [facility] Rx#:[id number] Oral 90 Output: Urine 750 600 Other: Voiding Method Toilet # Voids 1 2 - Exam PHYSICAL EXAMINATION: HEENT: Head is atraumatic, normocephalic. Pupils equal, round. Neck is supple. There is no elevated jugular venous pressure. HEART EXAMINATION: Heart sounds regular, S1 and S2 normal. No murmur or gallop heard. CHEST EXAMINATION: Lungs are clear to auscultation and precussion. No chest wall tenderness is noted on palpation or with deep breathing. ABDOMEN: Soft, nontender. Bowel sounds are heard. No organomegaly noted. EXTREMITIES: 2+ peripheral pulses with no evidence of peripheral edema and no calf tenderness noted. Right femoral puncture site soft with no hematoma or ecchymosis with mild tenderness to the site upon palpation. NEUROLOGIC patient is awake, alert and oriented x3. . - Labs CBC & Chem 7: 01/19/21 19:14 01/21/21 05:43 Labs: Abnormal Lab Results - Last 24 Hours (Table) 01/21/21 Range/Units 05:43 Glucose 115 H (74-99) mg/dL Assessment and Plan Assessment: #1 CAD with prior stenting, status post stenting of the RCA this admission #2 hypertension #3 hyperlipidemia #4 nicotine dependence Plan: From cardiology's perspective patient may be discharged home. He will continue dual antiplatelet therapy, Lipitor, lisinopril, and metoprolol. Reinforced importance of smoking cessation. He will follow up in the office as an outpatient with Dr. Howe in about a week. The above dictated assessment and findings were discussed with signing physician. The impression and plan of care have been directed as dictated. Vinh Lindsey, Nurse Practitioner, acting as scribe for signing physician.
[2021-01-21 15:12] VITALS: BP 103/63; PULSE 72; TEMP 98.1
[2021-01-21] MEDS ORDERED: FAMOTIDINE 20 MG TAB PO SCH (21:00)
--- NOTE | 2021-01-22 00:09 | P.HPIM ---
History of Present Illness Please consider this note as combined H and P and discharge summary Diagnoses: unstable angina status post cardiac cath and PCI to the RCA Mild ischemic cardiomyopathy, asymptomatic. Ejection fraction of 45-50% Hypertension Hyperlipidemia Nicotine dependence Hospital course This is a pleasant 55 years old male with past medical history of coronary artery disease, who presents with chest pain and he underwent cardiac cath by ops analyst and found to have a critical lesion of the right coronary artery status post PCI to the same. Postprocedure he was doing well with no chest pain or dyspnea or no other complaints. Echocardiogram showed ejection fraction of 45-50 % however patient is asymptomatic, no leg swelling, no dyspnea. He has very minimal hematoma on the right groin signed with no bruits. Patient was eager to go home today as he is back to his baseline. Patient was cleared by ops analyst for discharge. Importance of adherence to antiplatelet therapy with aspirin And Plavix are explained for the patient. Prescription to all home medication sent to the pharmacy upon his request Problems and management plan were discussed with the patient and he verbalized understanding and acceptance Patient was found stable and can be discharged home however he needs follow-up as an outpatient. Patient was instructed to follow up with PCP within one week and patient agrees Also patient was instructed to follow up with Dr. Langford in one week, patient agrees to make his own appointment as today is week and Review of systems CONSTITUTIONAL: No fever, no malaise, no fatigue. HEENT: No recent visual problems or hearing problems. Denied any sore throat. CARDIOVASCULAR: No orthopnea, PND, no palpitations, no syncope. PULMONARY: No shortness of breath, no cough, no hemoptysis. GASTROINTESTINAL: No diarrhea, no nausea, no vomiting, no abdominal pain. Normoactive bowel sounds. NEUROLOGICAL: No headaches, no weakness, no numbness. HEMATOLOGICAL: Denies any bleeding or petechiae. GENITOURINARY: Denies any burning micturition, frequency, or urgency. MUSCULOSKELETAL/RHEUMATOLOGICAL: Denies any joint pain, swelling, or any muscle pain. ENDOCRINE: Denies any polyuria or polydipsia. Physical exam GENERAL: The patient is alert and oriented x3, not in any acute distress. Well developed, well nourished. HEENT: Pupils are round and equally reacting to light. EOMI. No scleral icterus. No conjunctival pallor. Normocephalic, atraumatic. No pharyngeal erythema. No thyromegaly. CARDIOVASCULAR: S1 and S2 present. No murmurs, rubs, or gallops. PULMONARY: Chest is clear to auscultation, no wheezing or crackles. ABDOMEN: Soft, nontender, nondistended, normoactive bowel sounds. No palpable organomegaly. MUSCULOSKELETAL: No joint swelling or deformity. EXTREMITIES: No cyanosis, clubbing, or pedal edema. NEUROLOGICAL: Gross neurological examination did not reveal any focal deficits. SKIN: No rashes. No petechiae Time spent more than 35 minutes Past Medical History Past Medical History: Myocardial Infarction (AL) Additional Past Medical History / Comment(s): right shoulder pain, back pain Last Myocardial Infarction Date:: 2018 History of Any Multi-Drug Resistant Organisms: None Reported Past Surgical History: Heart Catheterization With Stent, Orthopedic Surgery Additional Past Surgical History / Comment(s): left leg, left knee, stent x2 Past Anesthesia/Blood Transfusion Reactions: No Reported Reaction Date of Last Stent Placement:: 10/16/18 Past Psychological History: Depression Additional Psychological History / Comment(s): Pt resides with his significant other. He uses no assistive device. He does not drive, he gets places by family, bus or cab. Smoking Status: Current every day smoker Past Alcohol Use History: None Reported Additional Past Alcohol Use History / Comment(s): Pt started smoking in 1980 and is a ppd smoker. Past Drug Use History: Cocaine, Heroin, Methamphetamine Additional Drug Use History / Comment(s): Pt states he last used cocaine, heroin yesterday, 10/16/18 - Past Family History Father Family Medical History: Coronary Artery Disease (CAD), Respiratory Disorder Additional Family Medical History / Comment(s): Father at the age of 75 yrs. Mother Family Medical History: No Reported History Additional Family Medical History / Comment(s): Mother is healthy Medications and Allergies Home Medications Medication Instructions Recorded Confirmed Type Aspirin 325 mg PO DAILY #30 tab 01/21/21 Rx Atorvastatin Calcium [Lipitor] 80 mg PO HS #30 tablet 01/21/21 Rx Clopidogrel [Plavix] 75 mg PO DAILY #30 tab 01/21/21 Rx Metoprolol Tartrate [Lopressor] 12.5 mg PO BID #60 tab 01/21/21 Rx Nitroglycerin Sl Tabs [Nitrostat] 0.4 mg SUBLINGUAL Q5M PRN #20 tab 01/21/21 Rx lisinopriL [Zestril] 2.5 mg PO DAILY 30 Days #30 tab 01/21/21 Rx Allergies Allergy/AdvReac Type Severity Reaction Status Date / Time codeine AdvReac Nausea & Verified 01/19/21 21:00 Vomiting/ITCH Physical Exam Vitals: Vital Signs Temp Pulse Pulse Resp BP BP Pulse Ox 01/21/21 14:00 98.1 F 72 14 103/63 100 01/21/21 08:22 97.5 F L 61 14 120/71 99 01/21/21 02:00 98.6 F 77 18 150/94 100 01/20/21 20:00 97.7 F 69 18 119/70 97 01/20/21 17:50 69 18 136/81 99 01/20/21 17:20 75 18 118/72 99 01/20/21 16:50 77 18 123/77 98 01/20/21 16:29 61 01/20/21 16:20 75 18 125/73 99 01/20/21 16:05 77 18 141/77 99 01/20/21 15:50 98 F 71 18 147/89 158/93 100 01/20/21 15:35 68 18 158/93 100 01/20/21 15:32 66 16 168/94 98 01/20/21 15:22 52 L 16 153/71 98 01/20/21 15:20 58 L 16 156/78 98 Intake and Output 01/21/21 01/21/21 01/21/21 06:59 14:59 22:59 Other: Voiding Method Toilet # Voids 2 Results CBC & Chem 7: 01/19/21 19:14 01/21/21 05:43 Labs: Abnormal Lab Results - Last 24 Hours (Table) 01/21/21 Range/Units 05:43 Glucose 115 H (74-99) mg/dL Thrombosis Risk Factor Assmnt - Choose All That Apply Any of the Below Risk Factors Present?: No Other Risk Factors: No Other congenital or acquired thrombophilia - If yes, enter type in comment: No Thrombosis Risk Factor Assessment Level: Very Low Risk
[2021-01-22] MEDS ORDERED: CLOPIDOGREL 75 MG TAB PO SCH (09:00)
== END 2021-01-21 16:07 | disposition home or self-care (01) | DRG 247 ==
LOC: EC 18:44 → 6NMEDSUR 20:32 → OBSVTOIN 01-20 20:50
PROVIDERS: ADMIT Hospitalist; ATTEND Hospitalist
PROC: B2111ZZ Fluoroscopy of Multiple Coronary Arteries using Low Osmolar Contrast (ICD-10-PCS; principal; 2021-01-20 11:40)
PROC: 027034Z Dilation of Coronary Artery, One Artery with Drug-eluting Intraluminal Device, Percutaneous Approach (ICD-10-PCS; principal; 2021-01-20 11:40)
PROC: 4A023N7 Measurement of Cardiac Sampling and Pressure, Left Heart, Percutaneous Approach (ICD-10-PCS; principal; 2021-01-20 11:40)
DX: I25.110 Atherosclerotic heart disease of native coronary artery with unstable angina pectoris (principal); Z20.822 Contact with and (suspected) exposure to COVID-19; I25.5 Ischemic cardiomyopathy; I10 Essential (primary) hypertension; E78.5 Hyperlipidemia, unspecified; I25.2 Old myocardial infarction; M54.9 Dorsalgia, unspecified; M25.511 Pain in right shoulder; F11.90 Opioid use, unspecified, uncomplicated; F17.210 Nicotine dependence, cigarettes, uncomplicated; Z71.6 Tobacco abuse counseling; Z79.02 Long term (current) use of antithrombotics/antiplatelets; Z79.899 Other long term (current) drug therapy; Z95.5 Presence of coronary angioplasty implant and graft; Z86.59 Personal history of other mental and behavioral disorders; Z88.5 Allergy status to narcotic agent; Z82.49 Family history of ischemic heart disease and other diseases of the circulatory system; Z83.6 Family history of other diseases of the respiratory system
CPT/HCPCS: 36415; 71046; 80048; 80053; 80061; 82550; 83690; 83735; 83880; 84484; 85025; 85379; 85610; 85730; 87635; 93005; 93306; 93458; 96374; 99285